=== PATIENT | male | born 1945 | race African-American/Black ===

== ENCOUNTER 2017-08-06 13:48 | Emergency (ER) | payer MEDICARE, MEDICAID ==
[2017-08-06] MEDS ORDERED: Lorazepam 2 MG/ML VIAL ONE (14:44)
[2017-08-06 16:22] LABS: #Eosinphils 0.3 thou/uL (0.0-0.7); #Lymphocytes 1.2 thou/uL (1.20-3.40); #Monocytes 0.8 thou/uL (0.11-0.59); #Neutrophils 8.5 thou/uL (1.40-6.50); %Basophils 0.2 % (0.0-1.0); %Eosinophils 2.9 % (0.0-10.0); %Lymphocytes 11.2 % (21.0-51.0); %Monocytes 7.2 % (0.0-10.0); %Neutrophils 78.5 % (42.0-75.0); Hemoglobin 13.4 g/dL (14.0-18.0); Mean Corpuscular HGB CONC 31.8 g/dL (32.0-36.0); Mean Corpuscular Hemoglobin 28.1 pg (27.0-31.0); Mean Corpuscular Volume 88.3 fl (80.0-94.0); Mean Platelet Volume 7.9 fL (7.4-10.4); Platelet Count 213 thou/uL (130-400); RBC Distribution Width 13.5 % (11.5-14.5); Red Blood Cell (RBC) Count 4.79 mill/uL (4.70-6.10); White Blood Cell (WBC) Count 10.8 thou/uL (4.8-10.8)
[2017-08-06 16:44] LABS: ALT (SGPT) 7 U/L (8-55); AST (SGOT) 9 U/L (5-34); Albumin 3.8 g/dL (3.4-4.8); Alkaline Phosphatase 68 U/L (40-150); Anion Gap 15 mmol/L (10-20); BUN (Urea Nitrogen) 24 mg/dL (8.4-25.7); Bilirubin, Total 0.4 mg/dL (0.2-1.2); Calc. Creatinine Clearance 0 mL/min (70-130); Calcium 9.7 mg/dL (7.8-10.44); Carbon Dioxide 21 mmol/L (23-31); Chloride 108 mmol/L (98-107); Estimated GFR-MDRD 34; Globulin 3.5 g/dL (2.4-3.5); Glucose 101 mg/dL (80-115); Potassium 4.3 mmol/L (3.5-5.1); Protein, Total 7.3 g/dL (5.8-8.1); Sodium 140 mmol/L (136-145)
== END 2017-08-06 17:52 | disposition home or self-care (01) ==
LOC: ERS 13:48
DX: R56.9 Unspecified convulsions (principal); K21.9 Gastro-esophageal reflux disease without esophagitis; F03.90 Unspecified dementia, unspecified severity, without behavioral disturbance, psychotic disturbance, mood disturbance, and anxiety; I10 Essential (primary) hypertension; F31.9 Bipolar disorder, unspecified; F41.9 Anxiety disorder, unspecified; F20.9 Schizophrenia, unspecified; Z79.899 Other long term (current) drug therapy; K58.9 Irritable bowel syndrome, unspecified; M81.0 Age-related osteoporosis without current pathological fracture
CPT/HCPCS: 36415; 80053; 85025; 96372; J2060

== ENCOUNTER 2018-12-01 14:19 | Inpatient (IN) | payer MEDICARE, MEDICAID ==
[2018-12-01 16:27] LABS: #Basophils 0.1 thou/uL (0.0-0.2); #Eosinphils 0.4 thou/uL (0.0-0.7); #Lymphocytes 0.8 thou/uL (1.20-3.40); #Monocytes 0.4 thou/uL (0.11-0.59); #Neutrophils 4.9 thou/uL (1.40-6.50); %Eosinophils 5.6 % (0.0-10.0); %Lymphocytes 12.7 % (21.0-51.0); %Monocytes 6.2 % (0.0-10.0); %Neutrophils 74.5 % (42.0-75.0); Hemoglobin 12.9 g/dL (14.0-18.0); Mean Corpuscular HGB CONC 31.1 g/dL (32.0-36.0); Mean Corpuscular Hemoglobin 27.9 pg (27.0-31.0); Mean Corpuscular Volume 89.9 fL (78.0-98.0); Platelet Count 257 thou/uL (130-400); RBC Distribution Width 14.8 % (11.5-14.5); Red Blood Cell (RBC) Count 4.63 mill/uL (4.70-6.10); White Blood Cell (WBC) Count 6.5 thou/uL (4.8-10.8)
[2018-12-01 16:47] LABS: ALT (SGPT) 9 U/L (8-55); AST (SGOT) 8 U/L (5-34); Alkaline Phosphatase 89 U/L (40-150); Anion Gap 12 mmol/L (10-20); BUN (Urea Nitrogen) 26 mg/dL (8.4-25.7); Bilirubin, Total 0.5 mg/dL (0.2-1.2); Calc. Creatinine Clearance 0 mL/min (70-130); Calcium 9.7 mg/dL (7.8-10.44); Carbon Dioxide 27 mmol/L (23-31); Chloride 105 mmol/L (98-107); Estimated GFR-MDRD 33; Globulin 4.1 g/dL (2.4-3.5); Glucose 89 mg/dL (80-115); Potassium 4.1 mmol/L (3.5-5.1); Protein, Total 8.1 g/dL (5.8-8.1); Sodium 140 mmol/L (136-145)
[2018-12-01 17:09] LABS: CKMB 2.7 ng/mL (0-6.6)
[2018-12-01] MEDS ORDERED: Aspirin Chewable 81 MG TAB ONE (17:13)
[2018-12-01] MEDS ORDERED: Ondansetron PF 4 MG/2 ML Vial IVP PRN (19:39)
[2018-12-01] MEDS ORDERED: Ondansetron ODT 4 MG TAB PO PRN (19:39)
[2018-12-01] MEDS ORDERED: Acetaminophen 325 MG TAB PO PRN (19:39)
[2018-12-01 20:08] LABS: Troponin I 0.035 ng/mL (< 0.028)
--- NOTE | 2018-12-01 20:58 | CT ---
CT BRAIN WITHOUT CONTRAST: 12/01/18 HISTORY: Syncope. FINDINGS: Comparison is made with exam of 12/17/17. Changes of cortical atrophy and chronic small vessel ischemic disease are again seen. The ventricular size is stable and the basilar cisterns patent. No evidence of acute infarct, hemorrhage, midline shift, or abnormal extra-axial fluid collections ar e seen. The bony calvarium is intact. There is mucous retention cyst in the right frontal sinus again seen. Small old lacunar infarct in the right external capsule is redemonstrated. IMPRESSION: No CT evidence of acute intracranial process. POS: [facility]
[2018-12-01] MEDS ORDERED: cloNIDine 0.1 MG TAB PO PRN (21:23)
[2018-12-01] MEDS: hydrALAZINE 20 MG/ML VIAL SLOW IVP PRN (21:46)
[2018-12-01] MEDS: Sodium Chloride 0.9% 1,000 ML IV SCH (21:47)
[2018-12-01 23:05] LABS: Troponin I 0.039 ng/mL (< 0.028)
--- NOTE | 2018-12-02 02:30 | HP ---
PRIMARY CARE PHYSICIAN: Lena Sheppard MD CHIEF COMPLAINT: Syncope. HISTORY OF PRESENT ILLNESS: Mr. 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 He presents to [facility] after syncopal episode during a transfer earlier today. Nurses were transferring him to his wheelchair when he had syncope, nurses helped him to the ground and later called for EMS. The patient's blood pressure was noticed to be hypotensive with systolic in the 80s. The patient was transferred to [facility] for further evaluation and management. Upon arriving, his blood pressure improved. He was started on IV fluid hydration with normal saline. The patient was saying that he had not had a heart, not had lungs, kidneys, or any other organs. He states that he was and he is not "here anymore." When asked about how he was feeling, he had not answered my questions. He would turn and look at me, but not answer any further questions. His initial workup included lab work, which showed acute on chronic kidney disease with a creatinine of 2.38 with estimated GFR of 33 and slightly indeterminate troponin of 0.049, which trended down to 0.035. The patient denies any chest pain. He stated that he did not have a heart, so he was not able to have chest pain. CT of the head was performed which showed no evidence of acute intracranial process. The patient's blood pressure then went hypertensive when he was transferred to the floor. Therefore, he was restarted on his home regimen which included clonidine, however talking to nursing staff, the patient had refused his home medications over the last few days. REVIEW OF SYSTEMS: All other systems reviewed and found to be negative unless mentioned in the HPI. PAST MEDICAL HISTORY: Hypertension, GERD, IBS, osteoporosis, dementia, bipolar disorder, schizophrenia, and anxiety. PAST SURGICAL HISTORY: Patient declined. PSYCHIATRIC HISTORY: Significant for depression, dementia, schizophrenia, anxiety, and bipolar disorder. SOCIAL HISTORY: The patient lives at a long-term care facility at [facility] and he denied any alcohol, tobacco, or illicit drug use. KNOWN ALLERGIES: Haldol, Novocain, and procaine. CURRENT HOME MEDICATIONS: 1. Amlodipine 5 mg oral daily. 2. Zoloft 50 mg oral daily. 3. Tylenol 500 mg oral every 6 hours as needed for pain. 4. Risperdal 50 mg IM twice a month, 1st and 15th of the month. 5. Famotidine 20 mg oral daily. PHYSICAL EXAMINATION: VITAL SIGNS: BP 141/94, pulse 80, respirations 18, temperature 97.5 degrees Fahrenheit, O2 saturations 98% on room air. GENERAL: The patient is awake and lying in bed, and he appears to be in no acute distress at this time and I was not able to perform any further exam due to patient's refusal. However, from my assessment, he is lying comfortably in bed and in no acute distress. He would look at me and answer to not having a heart, lungs, or any other organs. He stated that he was and he is not in the room. He had a normal respiratory rate without any further retractions and his chest wall expansion was normal. He had moved all his limbs without any further focal deficits noted. LABORATORY DATA: WBC 6.5, RBC 4.63, hemoglobin 12.9, and platelets 257. Sodium 140, potassium 4.1, anion gap 12, BUN 26, creatinine 2.38, estimated GFR 33, glucose 89, AST 8, ALT 9. Troponin 0.049, 0.035. DIAGNOSTIC IMAGING: CT brain without contrast showed no CT evidence of acute intracranial process. ASSESSMENT AND PLAN: 1. Syncopal episode. The patient will undergo further testing including carotid Doppler and an echocardiogram during hospital course. We will also check orthostatic vital signs. He will be restarted on his home regimen at this time. Blood pressure and other vital signs will be monitored, and he will be kept on telemetry. PT and OT will be ordered for further assessment. 2. Hypertension. Continue home regimen at this time and add p.r.n. IV hydralazine as needed. Blood pressure and other vital signs will be monitored. Orthostatic blood pressures will be checked. 3. History of bipolar disorder, schizophrenia, anxiety and depression. The patient will be resumed on his home regimen. 4. History of gastroesophageal reflux disease. Continue PPI. 5. Code status is full code. 6. Deep venous thrombosis and gastrointestinal prophylaxis. 7. Surrogate decision maker is his spouse, Juliet. DISPOSITION: Pending further workup and clinical findings. Job ID: [id number] [facility]
[2018-12-02] MEDS: hydrALAZINE 20 MG/ML VIAL SLOW IVP PRN (04:46)
[2018-12-02 06:32] LABS: #Basophils 0.1 thou/uL (0.0-0.2); #Eosinphils 0.6 thou/uL (0.0-0.7); #Lymphocytes 1.4 thou/uL (1.20-3.40); #Monocytes 0.4 thou/uL (0.11-0.59); %Basophils 1.1 % (0.0-1.0); %Eosinophils 10.2 % (0.0-10.0); %Lymphocytes 25.8 % (21.0-51.0); %Monocytes 7.7 % (0.0-10.0); %Neutrophils 55.2 % (42.0-75.0); Hemoglobin 11.9 g/dL (14.0-18.0); Mean Corpuscular HGB CONC 30.5 g/dL (32.0-36.0); Mean Corpuscular Hemoglobin 27.5 pg (27.0-31.0); Mean Corpuscular Volume 90.1 fL (78.0-98.0); Mean Platelet Volume 9.2 fL (7.4-10.4); Platelet Count 233 thou/uL (130-400); RBC Distribution Width 14.8 % (11.5-14.5); Red Blood Cell (RBC) Count 4.32 mill/uL (4.70-6.10); White Blood Cell (WBC) Count 5.4 thou/uL (4.8-10.8)
[2018-12-02 06:52] LABS: Anion Gap 11 mmol/L (10-20); BUN (Urea Nitrogen) 25 mg/dL (8.4-25.7); Calc. Creatinine Clearance 37 mL/min (70-130); Carbon Dioxide 23 mmol/L (23-31); Chloride 109 mmol/L (98-107); Estimated GFR-MDRD 41; Glucose 84 mg/dL (80-115); Potassium 3.9 mmol/L (3.5-5.1); Sodium 139 mmol/L (136-145)
[2018-12-02 08:52] LABS: Bilirubin Negative (Negative); Blood, Urine Negative (Negative); Clarity Clear (Clear); Glucose, Urine (Dipstick) Normal (Negative); Leukocyte 250 Leu/uL (Negative); Nitrite Negative (Negative); Protein, Urine (Dipstick) 10 mg/dL (Neg-Trace); RBC/HPF 0-3 HPF (0-3); Squamous Epithelial 0-3 HPF (0-3); Urobilinogen Normal mg/dL (Less than 2)
[2018-12-02 09:01] LABS: Bacteria/HPF 4+ HPF (None Seen)
[2018-12-02 09:02] LABS: Urine Culture Reflex Yes Yes
[2018-12-02] MEDS: Enoxaparin Sodium 40 MG/0.4 ML SYRINGE SC SCH (09:30)
[2018-12-02] MEDS: Amlodipine 5 MG TAB PO SCH (09:30)
[2018-12-02] MEDS: Sodium Chloride 0.9% 1,000 ML IV SCH ×2 (09:31→22:52)
--- NOTE | 2018-12-02 10:19 | ULT ---
BILATERAL CAROTID DUPLEX ULTRASOUND: HISTORY: Syncope TECHNIQUE: Grayscale, color-flow and spectral Doppler ultrasound imaging of the extracranial carotid artery syst ems was performed bilaterally. FINDINGS: There is mild plaque formation. The peak systolic velocity in the right ICA measures 60 cm/s with an end-diastolic velocity of 16 cm/ s and a systolic ratio of 0.59. The peak systolic velocity in the left ICA measures 60 cm/s with an end-diastolic velocity of 20 cm/s and a systolic ratio of 0.51. Flow in both vertebral arteries remains antegrade. IMPRESSION: No evidence of hemodynamically significant stenosis.
--- NOTE | 2018-12-02 14:58 | PRG ---
DATE OF SERVICE: 12/02/2018 SUBJECTIVE: The patient has some behavior behavioral issues. He is refusing medications. He just allows us to use IV. He responds to us on and off whenever he wants to. OBJECTIVE: VITAL SIGNS: Blood pressure is 177/95, pulse is 77, temperature is 96.8, respiratory rate is 20, and O2 saturation is 96% on room air. HEENT: His head is atraumatic and normocephalic. Pupils are responding to light properly. Sclerae are nonicteric. Oral mucosa is moist. NECK: Supple. LUNGS: Clear. HEART: S1, S2 normal. No S3. No S4. ABDOMEN: Soft, nontender, nondistended. EXTREMITIES: 1+ peripheral edema similarly bilateral on the both lower extremities. NEUROLOGICAL: Sometimes he follows my commands, sometimes he does not. LABORATORY DATA: White count of 5.4, hemoglobin 11.9, hematocrit 38.9, platelet count 233,000. Sodium 139, potassium 3.9, chloride 109, CO2 of 23, BUN 25, creatinine 1.95. Second set of troponin I 0.039. Urinalysis shows 250 of leukocyte esterase, 11 to 20 WBCs, 4+ bacteria. My culture on his urine is pending. IMAGING STUDIES: Carotid Doppler study showed no evidence of hemodynamically significant stenosis. IMPRESSION: 1. Syncope, most likely related to orthostatic hypotension. We did orthostatic vitals on him and he drops from his lying flat to standing up more than 40 mmHg systolic. We will give him IV fluids. 2. Hypertension. Now, we will avoid vasodilators like hydralazine. 3. History of bipolar disorder, schizophrenia, anxiety and depression, which translates into erratic behavior. Continue his gentle hydration with normal saline at 75 mL/h since with the patient's age is 72. We will recheck his orthostatic vitals tomorrow. We will continue his amlodipine and sertraline. Echocardiogram is still pending. Job ID: [id number]
[2018-12-03 07:28] LABS: #Eosinphils 0.5 thou/uL (0.0-0.7); #Lymphocytes 1.3 thou/uL (1.20-3.40); #Monocytes 0.3 thou/uL (0.11-0.59); #Neutrophils 2.2 thou/uL (1.40-6.50); %Basophils 0.7 % (0.0-1.0); %Eosinophils 12.6 % (0.0-10.0); %Lymphocytes 28.9 % (21.0-51.0); %Neutrophils 50.9 % (42.0-75.0); Hemoglobin 10.8 g/dL (14.0-18.0); Mean Corpuscular HGB CONC 30.4 g/dL (32.0-36.0); Mean Corpuscular Hemoglobin 27.4 pg (27.0-31.0); Mean Corpuscular Volume 90.3 fL (78.0-98.0); Mean Platelet Volume 9.2 fL (7.4-10.4); Platelet Count 222 thou/uL (130-400); RBC Distribution Width 14.6 % (11.5-14.5); Red Blood Cell (RBC) Count 3.94 mill/uL (4.70-6.10); White Blood Cell (WBC) Count 4.3 thou/uL (4.8-10.8)
[2018-12-03 07:51] LABS: Anion Gap 10 mmol/L (10-20); BUN (Urea Nitrogen) 24 mg/dL (8.4-25.7); Calc. Creatinine Clearance 37 mL/min (70-130); Calcium 8.9 mg/dL (7.8-10.44); Carbon Dioxide 24 mmol/L (23-31); Chloride 110 mmol/L (98-107); Estimated GFR-MDRD 42; Glucose 75 mg/dL (80-115); Potassium 3.9 mmol/L (3.5-5.1); Sodium 140 mmol/L (136-145)
[2018-12-03] MEDS: Amlodipine 5 MG TAB PO SCH ×2 (10:48→11:37)
[2018-12-03] MEDS: Enoxaparin Sodium 40 MG/0.4 ML SYRINGE SC SCH ×2 (10:49→11:41)
[2018-12-03] MEDS ORDERED: hydrALAZINE 20 MG/ML VIAL SLOW IVP PRN (11:00)
[2018-12-03] MEDS: Sodium Chloride 0.9% 1,000 ML IV SCH (13:20)
--- NOTE | 2018-12-03 13:25 | EKG ---
Test Reason : Blood Pressure : / mmHG Vent. Rate : 077 BPM Atrial Rate : 077 BPM P-R Int : 142 ms QRS Dur : 082 ms QT Int : 408 ms P-R-T Axes : 038 031 052 degrees QTc Int : 461 ms Normal sinus rhythm Possible Left atrial enlargement Borderline ECG No ST elevation/MO Confirmed by SRINIVAS TEIXEIRA M.D. ([id number]), editorial assistant OSEAS SYKES ([id number]) on 12/03/2018 1:24:41 PM Referred By: Confirmed By:SRINIVAS TEIXEIRA M.D.
--- NOTE | 2018-12-03 16:23 | PRG ---
DATE OF SERVICE: 12/03/2018 SUBJECTIVE: The patient is seen and examined at the bedside. He refused multiple times his medications. He wants to go back to his [facility], the place where he lives and where he came from. OBJECTIVE: VITAL SIGNS: Blood pressure is 180/95, temperature is 97.6, respirations 16, pulse oximetry is 97%, on room air. HEENT: His pupils are responding to light properly. Sclerae are nonicteric. Oral mucosa is moist. NECK: Supple. LUNGS: Clear. HEART: S1, S2, somewhat distant. No S3. No S4. ABDOMEN: Soft, nontender. EXTREMITIES: 1+ peripheral edema similar bilaterally. SKIN: No rashes. NEUROLOGICAL: He agrees to take his medications only under one condition that I am going to send him back to his prison today. LABORATORY DATA: White count of 4.3, hemoglobin 10.8, hematocrit 35.6, platelet count is 222,000. Sodium of 140, potassium 3.9, chloride 110, CO2 of 24, BUN 24, creatinine 1.94, glucose 75. IMPRESSION AND PLAN: 1. Syncope is most likely related to orthostatic hypotension. He is receiving IV fluids. We are going to check his orthostatic hypotension, blood pressure, and pulse today. We will see where we stand. 2. Hypertension, not controlled since the patient is refusing his medications. We are going to discontinue hydralazine and use labetalol. 3. History of bipolar disorder, schizophrenia, and depression. At this point, this is an issue because the patient refuses his medications to take. His carotid Doppler came back normal. No blockages. We are still awaiting for echocardiogram to be read. It was taking and once we have blood pressure under control, most likely we will have to send him back. Job ID: [id number]
[2018-12-04] MEDS: Sodium Chloride 0.9% 1,000 ML IV SCH ×2 (03:14→15:35)
[2018-12-04] MEDS: Enoxaparin Sodium 40 MG/0.4 ML SYRINGE SC SCH (09:45)
[2018-12-04] MEDS: Amlodipine 5 MG TAB PO SCH (09:45)
--- NOTE | 2018-12-04 14:19 | PRG ---
DATE OF SERVICE: 12/04/2018 SUBJECTIVE: The patient refuses any food or drinks. He says that he is not hungry. OBJECTIVE: VITAL SIGNS: Blood pressure is 174/97, pulse 71, temperature is 97.5, respirations 17, and O2 saturation 95% on room air. HEENT: His pupils are responding to light properly. Sclerae are nonicteric. Oral mucosa is somewhat dry. NECK: Supple. LUNGS: Clear. HEART: S1, S2 normal. There is a systolic murmur over the left sternal border, 2/6. ABDOMEN: Soft, nontender, nondistended. EXTREMITIES: No clubbing, cyanosis, or edema. NEUROLOGIC: He behaves like a psych patient. Sometimes he responds, sometimes he does not. Want to talk to anybody. He refuses medications. He refuses food. LABORATORY DATA: Microbiology, E. coli in his urine which is more than 100,000 colonies which is sensitive to ceftazidime, ceftriaxone, meropenem, Zosyn, and ampicillin. Cardiogram was done and showed LVEF estimated at 50% to 55% suggestive of diastolic dysfunction. A carotid Doppler was done the day before and it came back negative. IMPRESSION: 1. Syncope which was related to orthostasis. He is still getting gentle hydration 75 mL/h. 2. Hypertension. The patient refuses his medications. 3. Bipolar disorder/schizophrenia. The patient refused food, refused medications several times. I contacted a pharmacist and apparently he is due for his Risperdal slow release a dose on the , which is tomorrow. We will try to localize this in some other pharmacist since we do not carry this medications in our pharmacy. This might help us with his attitude towards not eating, not taking medications like he is supposed to. We will continue gentle hydration since he is not taking much orally any fluids or any food. Job ID: [id number]
[2018-12-04] MEDS: cefTRIAXone\\ROCEPHIN 1 GM in Sodium Chloride 0.9% 100 ML IVPB SCH (21:24)
[2018-12-05] MEDS: Labetalol HCl 100 MG/20 ML VIAL SLOW IVP PRN ×2 (00:07→04:01)
[2018-12-05] MEDS ORDERED: RISPERIDONE MICROSPHERES 50 MG IM SCH (09:00)
[2018-12-05] MEDS: Enoxaparin Sodium 40 MG/0.4 ML SYRINGE SC SCH (09:09)
[2018-12-05] MEDS: Amlodipine 5 MG TAB PO SCH (09:09)
[2018-12-05] MEDS: Sodium Chloride 0.9% 1,000 ML IV SCH (09:10)
--- NOTE | 2018-12-05 12:23 | PQF ---
EUFEMIA PEREIRA ZBIGNIEW A MD [id number] CLINICAL DOCUMENTATION IMPROVEMENT CLARIFICATION FORM: ICD-10 Updated PLEASE DO AN ADDENDUM TO THE PROGRESS NOTE WITH ANY DOCUMENTATION UPDATES OR ADDITIONS AND CARRY THROUGH TO DC SUMMARY. THANK YOU. DATE: 12/05/18 , 12/06/18, 12/07/18 ATTN:DR. Jazzy MORENO, DR.D MONTANEZ Please exercise your independent, professional judgment in responding to the clarification form. Clinical indicators are provided on the bottom of this form for your review. Please check appropriate box(s): [ ] Acute Renal Failure (ARF) / Acute Kidney Injury (SAMMY) [ ] Acute on Chronic Renal Failure please specify Stage of CKD (see below) [ x ] CKD without ARF/SAMMY please specify Stage of CKD__III [ ] Other diagnosis [ ] Unable to determine In addition, please specify: Present on Admission (POA): [x ] Yes [ ] No [ ] Unable to determine National Kidney Foundation Guidelines for CKD Staging Stage I Kidney damage with normal or increased GFRGFR > 90 Stage IIKidney damage with mildly decreased GFRGFR 60-89 Stage III Kidney damage with moderately decreased GFRGFR 30-59 Stage IVKidney damage with severely decreased GFRGFR 16-29 Stage VKidney failureGFR<15 ESRDEnd Stage Renal DiseaseOn dialysis Acute Renal Failure/Acute Kidney Failure defined as: Increases in SCr by (>) 0.3 mg/dl within 48 hours OR- Increases in SCr by (>) 1.5 times baseline, known or presumed to have occurred within the prior 7 days OR- Urine volume < 0.5 ml/kg/hour for 6 hours (KDIGO supplement 2012 for RIFLE/EROS criteria) For continuity of documentation, please document condition throughout progress notes and discharge summary. Thank You. CLINICAL INDICATORS - SIGNS / SYMPTOMS / LABS 12/01 ED: PHYSICIAN DX: ACUTE KIDNEY INJURY 12/01 H & P (LEE) HIS INITIAL WORKUP INCLUDED LAB WORK, WHICH SHOWED ACUTE ON CHRONIC KIDNEY DISEASE WITH A CREATININE OF 2.38 WITH ESTIMATED GFR OF 33. 12/01 CREATININE 2.38 1.95 1.94 RISK: PT IS REFUSING TO DRINK FLUIDS (12/04-JOSH) ADVANCED AGE ( 72) UTI W/ E-COLI (JOSH) TREATMENTS: IV FLUID RESUSCITATION SERIAL LABS THANK YOU! JALEESA (This form is maintained as a part of the permanent medical record) 2014 [employer]. All Rights Reserved [email or web address] [phone] MTDD
--- NOTE | 2018-12-05 12:38 | PQF ---
EUFEMIA PEREIRA ZBIGNIEW A MD [id number] [facility]-[id number] CLINICAL DOCUMENTATION IMPROVEMENT CLARIFICATION FORM: ICD-10 Updated PLEASE DO AN ADDENDUM TO THE PROGRESS NOTE WITH ANY DOCUMENTATION UPDATES OR ADDITIONS AND CARRY THROUGH TO DC SUMMARY. THANK YOU. DATE: 12/05/18 , 12/06 ATTN:DR. Gunnar MORENO Please exercise your independent, professional judgment in responding to the clarification form. Clinical indicators are provided on the bottom of this form for your review. Please check appropriate box(s): [ x ] UTI please specify if due to or related to (as applicable): UTI Site: [ ] Kidney [ ] Ureter [ x ] Bladder [ ] Urethra [ ] Unable to determine Specify Organism (if known): [ ] Unknown organism [ ] Other diagnosis [ ] Unable to determine In addition, please specify: Present on Admission (POA): [ ] Yes [ ] No [ x ] Unable to determine For continuity of documentation, please document condition throughout progress notes and discharge summary. Thank You. CLINICAL INDICATORS - SIGNS / SYMPTOMS / LABS 12/02 MICROBIOLOGY URINE CULTURE- ESCHERICHIA COLI 12/02 URINE- WBC 11-20, LEUKOCYTES 250, BACTERIA 4+ RISK: PT REFUSING MEDICATIONS (12/03 JOSH) ADVANCED AGE (72) HX OF BIPOLAR,SCHIZOPHRENIA W/ BEHAVIOR ISSUES( JOSH) TREATMENTS: URINE CULTURE URINALYSIS ROCEPHIN ORDERED (LEE) THANK YOU! JALEESA (This form is maintained as a part of the permanent medical record) 2014 [employer], [employer]. All Rights Reserved [email or web address] [phone] [email or web address]
--- NOTE | 2018-12-05 14:28 | PRG ---
DATE OF SERVICE: 12/05/2018 SUBJECTIVE: The patient is seen and examined at the bedside. He has very flat affect. He does not want to eat. He does not communicate with me. Most likely his schizophrenia is causing that. OBJECTIVE: VITAL SIGNS: Blood pressure is 131/69, pulse is 74, temperature is 97.6, respirations are 18, O2 saturation is 96% on room air. HEENT: His head is atraumatic and normocephalic. Eyes are PERRLA. Sclerae are nonicteric. Oral mucosa is moist. NECK: Supple. LUNGS: Clear. HEART: S1 and S2 normal. ABDOMEN: Soft, nontender. EXTREMITIES: No clubbing, cyanosis, or edema. NEUROLOGICAL: He is not consistent with his action. Sometimes he follows my commands. Sometimes he does not want to follow. He moves his all 4 extremities. LABORATORY DATA: None today. IMPRESSION AND PLAN: 1. Syncope, which was related to orthostasis. I think this has improved. 2. Hypertension. The patient refuses his medications. 3. Bipolar disorder/schizophrenia. Yesterday, I talked to the pharmacist, and we are going to try to get his Risperdal, which I hope is going to help to change his attitude. He does not want to eat. I think he is just upset with us. He is due for his next dose of slow release Risperdal, and we will try to get this and give it to him. For now, we will just continue his gentle hydration with IV fluids at 50 mL/h, and we will try to encourage him to eat. Job ID: [id number]
[2018-12-05] MEDS: cefTRIAXone\\ROCEPHIN 1 GM in Sodium Chloride 0.9% 100 ML IVPB SCH (20:19)
[2018-12-06] MEDS: Sodium Chloride 0.9% 1,000 ML IV SCH ×4 (04:54→21:39)
[2018-12-06] MEDS: Amlodipine 5 MG TAB PO SCH (08:30)
[2018-12-06] MEDS: Enoxaparin Sodium 40 MG/0.4 ML SYRINGE SC SCH (08:31)
[2018-12-06] MEDS: Labetalol HCl 100 MG/20 ML VIAL SLOW IVP PRN (08:31)
--- NOTE | 2018-12-06 14:25 | PRG ---
DATE OF SERVICE: SUBJECTIVE: The patient is seen and evaluated at the bedside. He does not interact with me much. He says one word from time to time. His affect is flat. He refuses to eat anything because he feels that he is not hungry, although he drinks Ensure. OBJECTIVE: VITAL SIGNS: Blood pressure is 148/80, pulse is 71, temperature is 97.7, respirations 18, O2 saturation is 98% on room air. HEENT: Eyes: Pupils are responding to light properly. Sclerae are nonicteric. Oral mucosa is moist. NECK: Supple. LUNGS: Clear. HEART: S1, S2 normal. No S3. No S4. ABDOMEN: Soft, nontender. EXTREMITIES: 1+ peripheral edema similar bilaterally on the lower extremities. LABORATORY DATA: Pending. IMPRESSION: 1. Orthostatic hypotension. 2. Syncope secondary to orthostatic hypotension. Urinary tract infection with Escherichia coli, on Rocephin. 1. Hypertension. 2. Bipolar disorder. 3. Schizophrenia. PLAN: We are going to continue his gentle hydration since he is not taking much orally. He received his long-acting Risperdal yesterday. It was brought to him from his detention in [place]. We will continue his Rocephin for urinary tract infection and he will be started on Megace. Hopefully, he is going to take this to improve his anorexia. He does not want to eat any solid foods. Job ID: [id number]
[2018-12-06] MEDS: Megestrol Acetate 800 MG/20 ML UDCUP PO SCH (16:16)
[2018-12-06] MEDS: cefTRIAXone\\ROCEPHIN 1 GM in Sodium Chloride 0.9% 100 ML IVPB SCH (20:24)
[2018-12-07] MEDS: Amlodipine 5 MG TAB PO SCH ×2 (09:32→11:36)
[2018-12-07] MEDS: Enoxaparin Sodium 40 MG/0.4 ML SYRINGE SC SCH (09:33)
[2018-12-07] MEDS: Sodium Chloride 0.9% 1,000 ML IV SCH (11:39)
[2018-12-07 12:14] VITALS: BMI 24.5
[2018-12-07 15:26] VITALS: TEMP 97.5
[2018-12-07] MEDS: Megestrol Acetate 800 MG/20 ML UDCUP PO SCH ×2 (15:27→15:28)
[2018-12-07 17:58] VITALS: BP 144/89
--- NOTE | 2018-12-09 08:45 | DIS ---
DATE OF ADMISSION: 12/01/2018 DATE OF DISCHARGE: 12/07/2018 DISCHARGE DIAGNOSES: 1. Syncope. 2. Dehydration with orthostatic hypotension. 3. Chronic kidney disease, stage 3. 4. Schizophrenia. 5. Elevated troponin, felt to be normal for patient's level of renal function and age and consistent with prior values. 6. Urinary colonization of Escherichia coli. HISTORY OF PRESENT ILLNESS: This patient is a 73-year-old male, who has significant schizophrenia and lives in a residential facility. The patient was being transferred from a wheelchair apparently when he had episode of syncope. He was taken to the emergency department, where he was noted to have systolic blood pressure in the 80s, felt to be orthostatic in nature and had some IV fluids initiated. His blood pressure responded to the fluids. His other workup was notable for indeterminate troponins, which were consistent with some of his previous values within the record system, had a CT of the head, which was unremarkable. The patient was uncooperative with the exam given his underlying schizophrenia and was not able to give any hopeful history. HOSPITAL COURSE: The patient was admitted to the hospital. He was maintained on telemetry. Had carotid Dopplers which were negative. Had an echocardiogram, which revealed an ejection fraction of 50% to 55% with some suggestion of a diastolic dysfunction, but was otherwise normal. The patient's urine did grow an E coli. However, he remained afebrile, had no leukocytosis and no further evidence of infection, and was felt to be more likely related to colonization. His blood pressure remains normal. His creatinine and GFR improved slightly, but remained in the stage III range consistent with his prior values as well. At that point, the patient was felt to be stable. However, he was refusing to eat or take medications due to his schizophrenia. The patient's facility was ultimately called and they essentially told us that the patient's behavior was consistent with his usual behavior for them and they had some particular tricks which they could use in order to get him to eat better and/or preferred. Therefore, it was felt that the best approach to this patient would be to get him back to the facility, where they knew him best and to help facilitate better p.o. intake as well as medications. PHYSICAL EXAMINATION: VITAL SIGNS: On the day of discharge, his temperature was 97.5, pulse 85, respirations 18, O2 saturation 95% on room air, blood pressure 144/89. GENERAL: He was awake and alert, but unwilling to converse and to allow exam. HEART: Regular. LUNGS: Clear bilaterally. ABDOMEN: Benign. DISPOSITION: The patient is discharged back to his residential facility. ACTIVITY: His activity is as tolerated. DIET: He will be on a heart-healthy diet. DISCHARGE MEDICATIONS: He will continue his usual home medications including; 1. Risperdal. 2. Tylenol. 3. Catapres. 4. Sertraline. 5. Pepcid. 6. Norvasc. FOLLOWUP: He will have follow up at the [facility] with Dr. Lord and he can return to the hospital should he have any problems prior to that time. Job ID: [id number]
--- NOTE | 2018-12-09 11:16 | PQF ---
EUFEMIA PEREIRA, MATEO Morin MD [id number] CLINICAL DOCUMENTATION IMPROVEMENT CLARIFICATION FORM: ICD-10 Updated PLEASE DO AN ADDENDUM TO THE PROGRESS NOTE WITH ANY DOCUMENTATION UPDATES OR ADDITIONS AND CARRY THROUGH TO DC SUMMARY. THANK YOU. DATE: 12/09/2018 ATTN:DR. Ariela MONTANEZ Please exercise your independent, professional judgment in responding to the clarification form. Clinical indicators are provided on the bottom of this form for your review. 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 SUGGESTIVE OF DIASTOLIC DYSFUNCTION, NORMAL LEFT ATRIAL SIZE, NORMAL RIGHT ATRIAL SIZE 12/03 PN (JOSH) IMPRESSION: SYNCOPE IS MOST LIKELY RELATED TO ORTHOSTATIC HYPOTENSION. 12/03-12/05 PN ( JOSH) PT IS REFUSING TO TAKE HIS MEDICATIONS FOR HYPERTENSION RISK: ADVANCED AGE ( 73) HX HTN (LEE) REFUSAL OF MEDICATION DURING THIS HOSPITALIZATION (JOSH) TREATMENTS: CARDIAC ENZYMES CAROTID DOPPLER 12/02 ECHO 12/03 THANK YOU ! JALEESA (This form is maintained as a part of the permanent medical record) 2014 [employer]. All Rights Reserved [email or web address] [phone] MTDD
== END 2018-12-07 18:40 | DRG 312 ==
LOC: ERS 14:19 → OBSVTOIN 21:00 → 2NO 21:00
PROVIDERS: ADMIT Internal Medicine; ATTEND Internal Medicine
DX: I95.1 Orthostatic hypotension (principal); F20.9 Schizophrenia, unspecified; K21.9 Gastro-esophageal reflux disease without esophagitis; E86.0 Dehydration; F03.90 Unspecified dementia, unspecified severity, without behavioral disturbance, psychotic disturbance, mood disturbance, and anxiety; F41.9 Anxiety disorder, unspecified; B96.20 Unspecified Escherichia coli [E. coli] as the cause of diseases classified elsewhere; I12.9 Hypertensive chronic kidney disease with stage 1 through stage 4 chronic kidney disease, or unspecified chronic kidney disease; N18.3 Chronic kidney disease, stage 3 (moderate); F31.9 Bipolar disorder, unspecified; Z88.8 Allergy status to other drugs, medicaments and biological substances
CPT/HCPCS: 36415; 70450; 80048; 80053; 81001; 82553; 84484; 85025; 87077; 87086; 87186; 93005; 93306; 93880; 96360; J0360; J0696; J1650; J3490

== ENCOUNTER 2019-05-08 15:14 | Inpatient (IN) | payer MEDICAID, MEDICARE ==
[2019-05-08] MEDS ORDERED: Piperacillin/Tazobactam 4.5 GM VIAL ONE (15:30)
[2019-05-08 15:32] LABS: Hemoglobin 7.1 g/dL (14.0-18.0); Mean Corpuscular HGB CONC 30.5 g/dL (32.0-36.0); Mean Corpuscular Hemoglobin 27.2 pg (27.0-31.0); Mean Corpuscular Volume 89.1 fL (78.0-98.0); Mean Platelet Volume 10.7 fL (7.4-10.4); Platelet Count 159 thou/uL (130-400); RBC Distribution Width 16.3 % (11.5-14.5); Red Blood Cell (RBC) Count 2.62 mill/uL (4.70-6.10)
[2019-05-08 15:43] LABS: ALT (SGPT) 9 U/L (8-55); AST (SGOT) 15 U/L (5-34); Albumin 2.9 g/dL (3.4-4.8); Alkaline Phosphatase 73 U/L (40-110); Anion Gap 19 mmol/L (10-20); BUN (Urea Nitrogen) 38 mg/dL (8.4-25.7); Bilirubin, Total 0.3 mg/dL (0.2-1.2); CK (CPK) 19 U/L (30-200); Calc. Creatinine Clearance 0 mL/min (70-130); Carbon Dioxide 20 mmol/L (23-31); Chloride 118 mmol/L (98-107); Estimated GFR-MDRD 20; Globulin 4.1 g/dL (2.4-3.5); Glucose 143 mg/dL (83-110); Lipase 5 U/L (8-78); Magnesium 2.6 mg/dL (1.6-2.6); Potassium 4.7 mmol/L (3.5-5.1); Sodium 152 mmol/L (136-145)
[2019-05-08 15:49] LABS: Anisocytosis SLIGHT = 6-15 cells (100X) (0-5/hpf); Band 14 % (5-11); Lymphocytes 5 % (21-51); MDiff Complete? YES; Neutrophil 81 % (42-75); Nucleated RBC 8 % (0); Platelet Morphology Comment Appears Adequate; Polychromasia SLIGHT = 2-3 cells (100X) (0-2/hpf); Target Cells SLIGHT = 2-5 cells (100X) (0-1/hpf)
--- NOTE | 2019-05-08 16:01 | CT ---
PET CT WITHOUT CONTRAST: COMPARISON: 12/01/2018. HISTORY: Hypertension. Schizophrenia. FINDINGS: No parenchymal hemorrhage. No extraaxial hematoma. No midline shift. Basilar cisterns are patent. Age-appropriate atrophy. Cortical medrano-white matter differentiation is preserved. No hydrocephalus. White matter hypodensities due to chronic small-vessel ischemic changes are noted. Adequate aeration of the sinuses and mastoid air cells. Intact calvarium. Stable mucous retention c yst in the right frontal sinus. Mixed-attenuation focus in the region of the pineal gland measuring 0.9 x 0.8 cm. The possibility of a pineal lesion could not be entirely excluded. Dedicated nonemerg ent pre- and postcontrast brain MRI is recommended. IMPRESSION: 1. No acute intracranial process. 2. Possible complex pineal lesion. Dedicated pre- and postcontrast brain MRI can be performed on a nonemergent basis. POS: CET
--- NOTE | 2019-05-08 16:01 | RAD ---
ONE VIEW CHEST: Comparison: 12-17-17 History: Unresponsive patient. FINDINGS: Slight elongation of the aorta. Normal cardiac silhouette. The lung volumes are diminished. There uribe s appear to be a left lower lobe infiltrate. No pneumothorax. IMPRESSION: Left lower lobe infiltrate. POS: CET
[2019-05-08 16:04] LABS: CKMB 3.2 ng/mL (0-6.6)
[2019-05-08 16:17] LABS: Acetaminophen Less than 6.0 mcg/mL (10.0-30.0); Alcohol Less than 10 mg/dL (Less than 10); Salicylate Less than 8.0 mg/dL (15.0-30.0)
[2019-05-08 18:33] LABS: Troponin I 0.019 ng/mL (< 0.028)
[2019-05-08 19:02] LABS: Amphetamine Not Detected (NotDetected); Bacteria/HPF 3+ HPF (None Seen); Barbiturates Screen Not Detected (NotDetected); Benzodiazepine Screen Not Detected (NotDetected); Bilirubin Negative (Negative); Blood, Urine Negative (Negative); Clarity Turbid (Clear); Cocaine Metabolite Screen Not Detected (NotDetected); Glucose, Urine (Dipstick) Normal (Negative); Leukocyte 500 Leu/uL (Negative); Medtox Control Line Valid? VALID (VALID); Medtox Reader # READER 1; Methadone Not Detected (NotDetected); Methamphetamine Not Detected (NotDetected); Nitrite 2+ (Negative); Opiate Screen Not Detected (NotDetected); Oxycodone Screen Not Detected (NotDetected); Phencyclidine (PCP) Not Detected (NotDetected); Protein, Urine (Dipstick) 30 mg/dL (Neg-Trace); RBC/HPF 0-3 HPF (0-3); Squamous Epithelial 0-3 HPF (0-3); THC/Cannabinoid Screen Not Detected (NotDetected); Tricyclic Screen Not Detected (NotDetected); Urobilinogen Normal mg/dL (Less than 2); WBC/HPF Greater than 50 HPF (0-3)
[2019-05-08 19:04] LABS: Lactic Acid 0.6 mmol/L (0.5-2.2)
[2019-05-08] MEDS ORDERED: Acetaminophen 500 MG TAB PO PRN (20:01)
[2019-05-08] MEDS ORDERED: Acetaminophen 650 MG Suppository PR PRN (20:01)
[2019-05-08] MEDS ORDERED: Sodium Chloride 0.9% 1,000 ML IV SCH (20:01)
[2019-05-08] MEDS ORDERED: Ondansetron ODT 4 MG TAB PO PRN (20:01)
[2019-05-08] MEDS ORDERED: Ondansetron PF 4 MG/2 ML Vial IVP PRN (20:01)
[2019-05-08] MEDS ORDERED: Cefepime 2 GM VIAL ONE (20:55)
[2019-05-08] MEDS ORDERED: Famotidine/PF 20 mg/2ml Vial ONE (20:57)
[2019-05-08] MEDS ORDERED: Vancomycin 1.5 GRAM/300 ML BAG 1.5 GM in Premix Bag 1 BAG IVPB SCH (21:00)
[2019-05-08] MEDS ORDERED: Famotidine/PF 20 mg/2ml Vial SLOW IVP SCH (21:00)
[2019-05-08] MEDS: Cefepime 2 GM in Sodium Chloride 0.9% 100 ML IVPB SCH (21:09)
[2019-05-08] MEDS: Sodium Chloride 0.9% 1,000 ML IV SCH (21:09)
[2019-05-08 23:38] LABS: Hemoglobin 6.9 g/dL (14.0-18.0); Platelet Count 131 thou/uL (130-400)
--- NOTE | 2019-05-09 03:01 | HP ---
PRIMARY CARE PROVIDER: Dr. Lena Sheppard. CHIEF COMPLAINT: Unresponsiveness. HISTORY OF PRESENT ILLNESS: This is a 73-year-old male, who is a current resident at [facility], who was brought to [facility] Emergency Department by EMS personnel after they were called due to patient being unresponsive. History is obtained after review of electronic medical record and in conjunction with discussions with the emergency room attending. The patient currently with altered mentation and unable to provide any coherent history. The patient with a significant history of schizophrenia and previous episodes of "playing " per EMS reports. The patient was recently admitted to [facility] on 12/01 through 12/07/2018, for syncope, dehydration, orthostatic hypotension, and urinary tract infection. During that hospital stay, patient had been refusing to eat or take his medications due to his mental health issues. The patient was subsequently transferred back to his care home facility and has not been admitted to [facility] to date until this current admission. The patient apparently was not responsive and had poor oral intake per ER reports. In the emergency room, the patient was noted with severe dehydration and hypotension and treated initially for suspected sepsis. Chest imaging showed left lower lobe infiltrate and the patient received IV Zosyn and vancomycin per sepsis protocol. The patient also received IV fluid resuscitation and placed on a Gilberto Hugger due to hypothermia. The patient was initially hypotensive with blood pressure 67/47, improving to systolics over 100 with IV fluids. PAST MEDICAL HISTORY: 1. Paranoid schizophrenia. 2. Chronic kidney disease stage 3. 3. Chronic elevated troponin I secondary to chronic kidney disease. 4. Hypertension. 5. Gastroesophageal reflux disease. 6. Irritable bowel syndrome. 7. Osteoporosis. 8. Dementia. 9. Bipolar disorder. 10. Anxiety disorder. PAST SURGICAL HISTORY: Reviewed and negative. CURRENT MEDICATIONS: 1. Amlodipine 5 mg p.o. daily. 2. Zoloft 50 mg p.o. daily. 3. Risperdal 50 mg intramuscularly twice monthly on the and . 4. Famotidine 20 mg p.o. daily. ALLERGIES: HALDOL, NOVOCAIN, AND PROCAINE. FAMILY HISTORY: No inheritable diseases per review of the medical record. SOCIAL HISTORY: Resident of [facility], unable to perform activities of daily living. No alcohol, tobacco, or illicit drug use. REVIEW OF SYSTEMS: Unobtainable due to patient's altered mental status and inability to communicate. PHYSICAL EXAMINATION: VITAL SIGNS: On admission, blood pressure 97/60, pulse 98, respiratory rate 19, and temperature 90.8 degrees Fahrenheit rectally, O2 saturation 96% on room air. GENERAL APPEARANCE: This is a 73-year-old male, lying on the hospital bed with blankets pulled over his head on a Gilberto Hugger warming mechanism. HEENT: Pupils are equal, round, reactive to light and accommodation. Extraocular muscles are intact. No scleral icterus. No conjunctival injection. Nares patent. OP is clear. Dry oral mucosa noted. NECK: Supple. No cervical adenopathy. No thyromegaly. No carotid bruits. No JVD noted. No cervical motion tenderness or nuchal rigidity. CHEST: Lungs are clear to auscultation bilaterally. CARDIOVASCULAR: S1 and S2 with tachycardia. ABDOMEN: Rounded, soft, nontender, and nondistended. Bowel sounds are positive in all 4 quadrants. There is no hepatosplenomegaly. No abdominal bruits. No rebound or guarding appreciated. EXTREMITIES: Warm and dry with poor skin turgor. No clubbing, cyanosis, or asymmetric edema appreciated. Pulses diminished bilaterally at the dorsalis pedis and posterior tibial arteries. Capillary refill prolonged greater than 2 seconds. NEUROLOGIC: Patient unresponsive to voice or painful stimuli. Breathing spontaneously. Noncommunicative. PERTINENT LABORATORY AND X-RAY FINDINGS: Sodium 152, potassium 4.7, chloride 118, CO2 of 20, BUN 38, creatinine 3.70, estimated GFR 20, glucose 143. Lactic acid level ranged between 0.6 to 2.1. LFTs within normal limits. Troponin I ranged between 0.019 to 0.033. TSH 3.74. Lipase 5. CBC showed a white blood cell count of 9.0, hemoglobin 7.1, hematocrit 23.4, platelet count 159 with 81% neutrophils, 14% bands. Salicylate, acetaminophen, and plasma alcohol level negative. CT of the brain without contrast dated 05/08/2019, showed no acute intracranial process. Questionable complex pineal lesion. Portable chest x-ray dated 05/08/2019, showed left lower lobe infiltrate. EKG dated 05/08/2019, by my interpretation shows sinus mechanism with heart rates in the 80s. Normal R-wave progression noted in the precordial leads. Normal axis. No acute ST-T wave changes appreciated. ASSESSMENT AND PLAN: 1. Sepsis with septic shock. The patient will be admitted to the telemetry unit. Appropriate response to initial IV fluid resuscitation in the emergency room. We will continue normal saline at 125 mL/h. Avoid antihypertensive medications. Continue cefepime 2 g IV q.12 hours with additional vancomycin 1 g IV q.12 hours. Blood and urine cultures pending. Serial lactic acid level negative x2. 2. Acute kidney injury on chronic kidney disease stage 3. Suspect secondary to severe dehydration in conjunction with sepsis syndrome. Avoid nephrotoxic agents and limit contrast exposure. Continue IV fluids as outlined previously and repeat creatinine in the a.m. 3. Hypernatremia. Suspect secondary to severe dehydration and poor oral intake. We will continue IV fluid resuscitation as stated previously and monitor serial sodium values. 4. Acute on chronic normocytic anemia. No obvious evidence of acute blood loss. Check stool guaiac x1. Repeat hemoglobin at 2300 hours and in the a.m. 5. Schizophrenia. We will continue general supportive management. Confirm outpatient medication regimen. 6. Healthcare-associated bacterial pneumonia of the left lower lobe. Suspect gram-positive cocci. We will continue cefepime 2 g IV q.12 hours with additional vancomycin 1 g IV q.12 hours. Oxygen as needed to maintain O2 saturations greater than or equal to 90%. 7. Prophylaxis. SCDs while in bed. Pepcid 20 mg IV q.12 hours. PT evaluation in the a.m.. CODE STATUS: Do not attempt resuscitation confirmed with records reviewed from out of hospital DNR request from [facility]. Job ID: [id number]
[2019-05-09] MEDS: Sodium Chloride 0.9% 1,000 ML IV SCH ×4 (04:01→19:26)
[2019-05-09 04:40] LABS: Band 17 % (5-11); Eosinophils 1 % (0-10); Hemoglobin 6.4 g/dL (14.0-18.0); Lymphocytes 9 % (21-51); MDiff Complete? YES; Mean Corpuscular HGB CONC 31.5 g/dL (32.0-36.0); Mean Corpuscular Hemoglobin 27.9 pg (27.0-31.0); Mean Corpuscular Volume 88.6 fL (78.0-98.0); Mean Platelet Volume 9.8 fL (7.4-10.4); Monocytes 5 % (0-10); Neutrophil 68 % (42-75); Nucleated RBC 2 % (0); Platelet Count 140 thou/uL (130-400); Platelet Morphology Comment Appears Adequate; RBC Distribution Width 16.2 % (11.5-14.5); Red Blood Cell (RBC) Count 2.28 mill/uL (4.70-6.10); White Blood Cell (WBC) Count 9.5 thou/uL (4.8-10.8)
[2019-05-09 04:54] LABS: ALT (SGPT) 7 U/L (8-55); AST (SGOT) 8 U/L (5-34); Albumin 2.7 g/dL (3.4-4.8); Alkaline Phosphatase 64 U/L (40-110); Anion Gap 13 mmol/L (10-20); BUN (Urea Nitrogen) 38 mg/dL (8.4-25.7); Bilirubin, Total 0.3 mg/dL (0.2-1.2); Calc. Creatinine Clearance 17 mL/min (70-130); Calcium 8.5 mg/dL (7.8-10.44); Carbon Dioxide 24 mmol/L (23-31); Chloride 118 mmol/L (98-107); Estimated GFR-MDRD 18; Globulin 3.7 g/dL (2.4-3.5); Glucose 64 mg/dL (83-110); Potassium 4.7 mmol/L (3.5-5.1); Protein, Total 6.4 g/dL (5.8-8.1); Sodium 150 mmol/L (136-145)
[2019-05-09] MEDS: Cefepime 2 GM in Sodium Chloride 0.9% 100 ML IVPB SCH (08:50)
--- NOTE | 2019-05-09 17:35 | PDOC.HOSPP ---
- Subjective Encounter Date: 05/09/19 Encounter Time: 17:35 Subjective: f/u for sepsis with shock suspected secondary to PNA on Cefepime/Vancomycin. - Objective Vital Signs & Weight: Vital Signs (12 hours) Temp Pulse Pulse Resp BP BP Pulse Ox 05/09/19 16:52 97.3 F L 88 16 140/76 95 05/09/19 16:48 97.3 F L 88 18 140/76 95 05/09/19 14:11 94 L 05/09/19 12:00 97.2 F L 92 18 122/64 91 L 05/09/19 08:10 100 05/09/19 08:08 97.2 F L 94 18 121/75 100 05/09/19 07:44 98 Weight Admit Weight 153 lb Weight 153 lb I&O: 05/08/19 05/09/19 05/10/19 06:59 06:59 06:59 Intake Total 411 0 Balance 411 0 Result Diagrams: 05/09/19 04:12 05/09/19 04:12 Additional Labs: Laboratory Tests 05/08/19 05/08/19 05/08/19 15:16 15:16 23:29 Hgb 7.1 L 6.9 L Neutrophils % (Manual) 81 H Band Neuts % (Manual) 14 H Sodium 152 H Creatinine 3.70 H Ferritin Cortisol 05/09/19 05/09/19 05/09/19 04:12 04:12 13:08 Hgb Neutrophils % (Manual) 68 Band Neuts % (Manual) 17 H Sodium Creatinine Ferritin 95.90 Cortisol 9.10 EKG Reviewed by me: Yes (Tele - SR) Hospitalist ROS - Medication Medications: Active Medications Generic Name Dose Route Start Last Admin Trade Name Freq PRN Reason Stop Dose Admin Sodium Chloride 1,000 mls @ 125 mls/hr 05/08/19 20:01 05/09/19 12:18 Normal Saline 0.9% IV 1,000 mls .Q8H TAWNYA Administration Sodium Chloride 10 ml 05/09/19 09:00 05/09/19 08:50 Flush - Normal Saline IVF 10 ml Q12HR TAWNYA Administration - Exam General Appearance: NAD, awake alert Eye: PERRL, anicteric sclera ENT: normocephalic atraumatic, no oropharyngeal lesions Neck: supple, symmetric, no JVD, no thyromegaly Heart: RRR, no gallops, no rubs, normal peripheral pulses Respiratory: no rales, no ronchi Respiratory - other findings: diminished in bases Gastrointestinal: soft, non-tender, non-distended, normal bowel sounds, no palpable masses Extremities: no cyanosis, no clubbing Skin: normal turgor, no lesions Neurological: cranial nerve grossly intact, no new deficit Psychiatric: oriented to person, flat affect Hosp A/P (1) Sepsis with encephalopathy and septic shock Code(s): A41.9 - SEPSIS, UNSPECIFIED ORGANISM; R65.21 - SEVERE SEPSIS WITH SEPTIC SHOCK; G93.40 - ENCEPHALOPATHY, UNSPECIFIED Status: Acute Plan: Continue Cefepime/Vancomycin, decrease IVF's, await final blood/Ucx results, BP improved (2) Healthcare associated bacterial pneumonia Code(s): J15.9 - UNSPECIFIED BACTERIAL PNEUMONIA Status: Acute Plan: Suspected with gm+ cocci, continue Cefepime/Vancomycin (3) SAMMY (acute kidney injury) Code(s): N17.9 - ACUTE KIDNEY FAILURE, UNSPECIFIED Status: Acute Plan: Worsening, continue to avoid nephrotoxic meds and limit contrast, consult Nephrology in am (4) Hypernatremia Code(s): E87.0 - HYPEROSMOLALITY AND HYPERNATREMIA Status: Acute Plan: Improved, continue low-volume IVF's, serial Na+ (5) CKD (chronic kidney disease) stage 4, GFR 15-29 ml/min Code(s): N18.4 - CHRONIC KIDNEY DISEASE, STAGE 4 (SEVERE) Status: Chronic (6) Schizophrenia Code(s): F20.9 - SCHIZOPHRENIA, UNSPECIFIED Status: Chronic Plan: Resume home medication regimen (7) Normocytic anemia Code(s): D64.9 - ANEMIA, UNSPECIFIED Status: Acute Plan: Stool guaiac pending, transfuse 2u PRBC's today, serial H/H, check Iron studies , Retic count - Plan continue antibiotics, PT/OT, addiction social worker, respiratory therapy, out of bed/ ambulate, DVT proph w/SCDs Continue supportive mgmt Decrease IVF 75ml/h Continue Cefepime/Vancomycin Await final blood/Ucx results PT evaluation for functional assessment Consult Nephrology in am AM lab: BMP, CBC
[2019-05-09] MEDS: Famotidine/PF 20 mg/2ml Vial SLOW IVP SCH (19:25)
[2019-05-09 22:33] LABS: Vancomycin, Random 16.4 ug/mL (See Comment)
[2019-05-10] MEDS: Vancomycin HCl 500 MG in Sodium Chloride 0.9% 100 ML IVPB SCH (00:57)
[2019-05-10 04:14] LABS: Reticulocyte Count 1.6 % (0.5-1.5)
[2019-05-10 04:20] LABS: Band 1 % (5-11); Eosinophils 1 % (0-10); Hemoglobin 9.1 g/dL (14.0-18.0); Lymphocytes 12 % (21-51); MDiff Complete? YES; Mean Corpuscular HGB CONC 31.7 g/dL (32.0-36.0); Mean Corpuscular Hemoglobin 27.7 pg (27.0-31.0); Mean Corpuscular Volume 87.3 fL (78.0-98.0); Mean Platelet Volume 9.8 fL (7.4-10.4); Neutrophil 86 % (42-75); Platelet Count 133 thou/uL (130-400); Platelet Morphology Comment Appears Adequate; RBC Morphology Normal; White Blood Cell (WBC) Count 9.2 thou/uL (4.8-10.8)
[2019-05-10 04:33] LABS: Anion Gap 15 mmol/L (10-20); BUN (Urea Nitrogen) 37 mg/dL (8.4-25.7); Calc. Creatinine Clearance 17 mL/min (70-130); Calcium 8.7 mg/dL (7.8-10.44); Carbon Dioxide 21 mmol/L (23-31); Chloride 122 mmol/L (98-107); Estimated GFR-MDRD 18; Glucose 62 mg/dL (83-110); Iron 40 ug/dL (65-175); Iron Binding Capacity, Total 200 mcg/dL (261-462); Potassium 4.5 mmol/L (3.5-5.1); Sodium 153 mmol/L (136-145)
[2019-05-10] MEDS: Sodium Chloride 0.9% 1,000 ML IV SCH (07:46)
[2019-05-10] MEDS ORDERED: Sodium Chloride 0.45% 1,000 ML IV SCH ×2 (08:30→08:33)
[2019-05-10] MEDS: Folic Acid 1 MG TAB PO SCH (09:17)
[2019-05-10] MEDS: Cefepime 1 GM in Sodium Chloride 0.9% 100 ML IVPB SCH (09:20)
--- NOTE | 2019-05-10 09:51 | CON ---
DATE OF CONSULTATION: HISTORY OF PRESENT ILLNESS: Mr. Mercado is a 73-year-old black male, who was admitted for mental status change/unresponsiveness. He was also noted to be having an acute kidney injury on top of his chronic renal failure. He has had a history of decreased p.o. intake. Please note, the patient has history of schizophrenia and sometimes noted to be catatonic. This morning, he is noted to be more awake and answering to my verbal questioning. We are now consulted for further management of the patient's acute kidney injury. REVIEW OF SYSTEMS: No chest pain. No shortness of breath. No nausea. No vomiting. No diarrhea. Denies any fever or chills. No headache. No diplopia. Occasionally confused. MEDICATIONS: He is currently on; 1. Amlodipine 5 mg daily. 2. Zoloft 50 mg daily. 3. Risperdal 50 mg IM twice a month. 4. Famotidine 20 mg tablet once a day. PAST MEDICAL HISTORY: 1. Chronic renal failure. 2. Paranoid schizophrenia. 3. Hypertension. 4. GERD. 5. Osteoporosis. 6. Dementia. 7. History of bipolar disorder. 8. Anxiety. 9. Osteoporosis. PAST SURGICAL HISTORY: 1. Status post cystoscopy. 2. Status post ureteral right stent placement. 3. Status post retrograde pyelography. 4. Status post bladder biopsy. 5. Status post I and D of gluteal abscess. SOCIAL HISTORY: The patient is currently in a [place] [facility]. Currently, no smoking. No alcohol intake. No IV drug use. Sedentary lifestyle. ALLERGIES: HALDOL, NOVOCAIN, AND PROCAINE. TRAUMA: None. IMMUNIZATION: Up-to-date. HOSPITALIZATIONS: Please see past medical history. FAMILY HISTORY: Unknown. PHYSICAL EXAMINATION: VITAL SIGNS: Blood pressure 156/89, heart rate 89, respiratory rate 17, temperature 97.4, pulse ox 96% on room air. GENERAL: The patient is awake, dysarthric. He can follow simple commands and answer my questions. SKIN: Decreased turgor. HEENT: Slightly pale conjunctivae. Anicteric sclerae. No neck mass. No carotid bruits. No JVD. CHEST: No deformities. LUNGS: Clear breath sounds. No wheezing. No crackles. HEART: Normal sinus rhythm. No murmur. No gallops. No rubs. ABDOMEN: Globular, soft, nontender. No masses. EXTREMITIES: No edema. No deformities. LABORATORY AND DIAGNOSTIC DATA: Laboratories on May 10, 2019; white count 9.2, hemoglobin 9.1, hematocrit 28.8. Sodium 153, potassium 4.5, chloride 122, carbon dioxide 21, BUN 37, creatinine 3.93, glucose 62, GFR 18 mL/minute, calcium 8.7, iron is 40, TIBC 200. Folate 1.6. White count 9.2, hemoglobin 9.1. Chest x-ray is clear. CT scan of the brain, no acute intracranial abnormality. ASSESSMENT AND PLAN: 1. Acute kidney injury on top of his chronic renal failure - due to the history of decreased p.o. intake, consider hemodynamically-mediated renal dysfunction - the patient may simply be dehydrated. We did review his urinalysis and specific gravity is quite concentrated at 1021. He does have a small amount of protein. In addition, he does have white cells on the urine. We will continue IV hydration. 2. Hypernatremia. We will change the patient's IV fluid to half-normal saline at 125 mL/hr. 3. Chronic renal failure, consider possible underlying hypertensive nephropathy. Due to the history of a previous ureteral stent placement, we need to rule out any acute obstruction with this patient. For that reason, we ordered a renal ultrasound. 4. Agree with current management. 5. ? of urosepsis, on IV antibiotics. 6. Recheck basic metabolic panel and CBC in a.m. 7. Chronic anemia, on iron supplementation as well as folate tablets. Job ID: [id number]
--- NOTE | 2019-05-10 11:12 | ULT ---
RENAL ULTRASOUND: HISTORY: Chronic renal failure. FINDINGS: Real-time imaging of the right kidney show a very difficult to visualize kidney. The cortex appears echogenic estimated to measure 5.2 cm in length. The left kidney is never definitely identified. Th e bladder region shows a normal position to the bladder. IMPRESSION: Small echogenic right kidney. The left kidney is not definitely identified. It may be just obscured by bowel gas. POS: TPC
--- NOTE | 2019-05-10 16:27 | PDOC.HOSPP ---
- Subjective Encounter Date: 05/10/19 Encounter Time: 16:25 Subjective: f/u for severe dehydration, SAMMY and suspected sepsis due to LLL PNA tx with Cefepime/Vanc. Nursing reports pt refusing meds/po intake. Pt states he is " " and "doesn't have a heart or intestines." - Objective Vital Signs & Weight: Vital Signs (12 hours) Temp Pulse Pulse Pulse Resp BP BP 05/10/19 15:16 97.3 F L 77 16 05/10/19 11:32 97.4 F L 78 17 05/10/19 09:17 79 106 H 168/95 H 169/100 H 05/10/19 07:34 05/10/19 07:29 05/10/19 07:28 97.4 F L 89 17 BP Pulse Ox 05/10/19 15:16 165/92 H 96 05/10/19 11:32 164/98 H 97 05/10/19 09:17 05/10/19 07:34 96 05/10/19 07:29 92 L 05/10/19 07:28 156/89 H 96 Weight Admit Weight 153 lb Weight 153 lb I&O: 05/09/19 05/10/19 05/11/19 06:59 06:59 06:59 Intake Total 411 1574 Balance 411 1574 Result Diagrams: 05/10/19 03:49 05/10/19 03:49 Additional Labs: Laboratory Tests 05/08/19 05/08/19 05/08/19 15:16 15:16 23:29 Hgb 7.1 L 6.9 L Neutrophils % (Manual) 81 H Band Neuts % (Manual) 14 H Sodium 152 H Creatinine 3.70 H Ferritin Cortisol 05/09/19 05/09/19 05/09/19 04:12 04:12 13:08 Hgb 6.4 L Neutrophils % (Manual) 68 Band Neuts % (Manual) 17 H Sodium Creatinine Ferritin 95.90 Cortisol 9.10 Microbiology 05/08/19 18:35 Urine clean catch Urine Culture - Preliminary Radiology Reviewed by me: Yes (Bilat Renal sono - no acute process, limited eval of L kidney) EKG Reviewed by me: Yes (Tele - SR) Hospitalist ROS - Medication Medications: Active Medications Generic Name Dose Route Start Last Admin Trade Name Freq PRN Reason Stop Dose Admin Famotidine 20 mg 05/09/19 21:00 05/09/19 19:25 Pepcid SLOW IVP 20 mg QPM TAWNYA Administration Folic Acid 1 mg 05/10/19 09:00 05/10/19 09:17 Folvite PO 1 mg DAILY TAWNYA Administration Cefepime HCl 1 gm/ Sodium 100 mls @ 200 mls/hr 05/10/19 09:00 05/10/19 09:20 Chloride IVPB 100 mls 0900 TAWNYA Administration Vancomycin HCl 500 mg/ Sodium 100 mls @ 100 mls/hr 05/10/19 01:00 05/10/19 00 :57 Chloride IVPB 100 mls 0100 TAWNYA Administration Sodium Chloride 10 ml 05/09/19 09:00 05/10/19 09:20 Flush - Normal Saline IVF 10 ml Q12HR TAWNYA Administration - Exam General Appearance: NAD, awake alert Eye: PERRL, anicteric sclera ENT: normocephalic atraumatic, no oropharyngeal lesions Neck: supple, symmetric, no JVD, no thyromegaly Heart: RRR, no murmur, no gallops, no rubs, normal peripheral pulses Respiratory: CTAB, no wheezes, no rales, no ronchi Gastrointestinal: soft, non-tender, non-distended, normal bowel sounds Extremities: no cyanosis, no clubbing, no edema Skin: normal turgor, no lesions Neurological: cranial nerve grossly intact, no new deficit Musculoskeletal: normal tone, generalized weakness Psychiatric: oriented to person, flat affect Hosp A/P (1) Sepsis with encephalopathy and septic shock Code(s): A41.9 - SEPSIS, UNSPECIFIED ORGANISM; R65.21 - SEVERE SEPSIS WITH SEPTIC SHOCK; G93.40 - ENCEPHALOPATHY, UNSPECIFIED Status: Acute Plan: Suspected and resolving, continue Cefepime/Vanc another 24h then de-escalate coverage (2) Healthcare associated bacterial pneumonia Code(s): J15.9 - UNSPECIFIED BACTERIAL PNEUMONIA Status: Acute Plan: Continue Cefepime/Vanc another 24h (3) SAMMY (acute kidney injury) Code(s): N17.9 - ACUTE KIDNEY FAILURE, UNSPECIFIED Status: Acute Plan: Persistent, avoid nephrotoxic meds and limit contrast, serial monitoring (4) Hypernatremia Code(s): E87.0 - HYPEROSMOLALITY AND HYPERNATREMIA Status: Acute Plan: Worsening, change to D5W @ 100ml/h, serial Na+ monitoring (5) CKD (chronic kidney disease) stage 4, GFR 15-29 ml/min Code(s): N18.4 - CHRONIC KIDNEY DISEASE, STAGE 4 (SEVERE) Status: Chronic (6) Schizophrenia Code(s): F20.9 - SCHIZOPHRENIA, UNSPECIFIED Status: Chronic Plan: Advanced, supportive mgmt (7) Normocytic anemia Code(s): D64.9 - ANEMIA, UNSPECIFIED Status: Acute Plan: s/p 2u PRBC's, serial H/H, Folate/FeSO4 supplementation - Plan continue antibiotics, PT/OT, director of social media marketing, speech therapy, respiratory therapy, DVT proph w/SCDs Continue supportive mgmt D5W @ 100ml/h Continue Cefepime/Vancomycin another 24h then de-escalate Await final blood/Ucx results PT evaluation for functional assessment Appreciate Nephrology assistance AM lab: BMP, CBC
[2019-05-10] MEDS: Ferrous Sulfate 325 MG TAB PO SCH (16:46)
[2019-05-10] MEDS: Dextrose 5% in Water 1,000 ML IV SCH (16:46)
[2019-05-10] MEDS: Famotidine/PF 20 mg/2ml Vial SLOW IVP SCH (21:04)
[2019-05-10] MEDS ORDERED: Vancomycin HCl 500 MG in Sodium Chloride 0.9% 100 ML IVPB SCH (23:00)
[2019-05-11] MEDS: hydrALAZINE 20 MG/ML VIAL SLOW IVP PRN ×3 (00:56→23:41)
[2019-05-11] MEDS: Vancomycin HCl 500 MG in Sodium Chloride 0.9% 100 ML IVPB SCH (01:02)
[2019-05-11] MEDS: Dextrose 5% in Water 1,000 ML IV SCH ×3 (05:21→23:44)
[2019-05-11 06:24] LABS: Hemoglobin 9.9 g/dL (14.0-18.0); Mean Corpuscular HGB CONC 33.1 g/dL (32.0-36.0); Mean Corpuscular Hemoglobin 28.7 pg (27.0-31.0); Mean Corpuscular Volume 86.6 fL (78.0-98.0); Mean Platelet Volume 9.5 fL (7.4-10.4); Platelet Count 147 thou/uL (130-400); Red Blood Cell (RBC) Count 3.46 mill/uL (4.70-6.10); White Blood Cell (WBC) Count 10.4 thou/uL (4.8-10.8)
[2019-05-11 06:30] LABS: Band 2 % (5-11); Eosinophils 3 % (0-10); Lymphocytes 15 % (21-51); MDiff Complete? YES; Monocytes 3 % (0-10); Neutrophil 77 % (42-75); Platelet Morphology Comment Appears Adequate
[2019-05-11 06:33] LABS: Anion Gap 11 mmol/L (10-20); BUN (Urea Nitrogen) 35 mg/dL (8.4-25.7); Calc. Creatinine Clearance 21 mL/min (70-130); Calcium 8.7 mg/dL (7.8-10.44); Carbon Dioxide 21 mmol/L (23-31); Chloride 117 mmol/L (98-107); Estimated GFR-MDRD 21; Glucose 122 mg/dL (83-110); Potassium 3.8 mmol/L (3.5-5.1); Sodium 145 mmol/L (136-145); Vancomycin, Trough 16.1 ug/mL
--- NOTE | 2019-05-11 08:21 | PRG ---
DATE OF SERVICE: 05/11/2019 SUBJECTIVE: Mr. Mercado is a 73-year-old black male, who was seen for an acute kidney injury on top of his chronic renal failure. He was also being treated for pneumonia, currently on IV antibiotics. He was also noted to be hypernatremic and hypotonic solution has been given with improvement of his serum sodium. This morning, voices no new complaint. His mentation is about baseline. He does not follow commands, but answers intermittently and is somewhat confused. OBJECTIVE: VITAL SIGNS: Blood pressure 158/91, heart rate 97, respiratory rate 17, temperature 97.3, and pulse ox 92%. GENERAL: Noted to be awake, comfortable, responding to my verbal stimuli but not in distress. SKIN: Adequate turgor. HEENT: He has pinkish conjunctivae. Anicteric sclerae. No neck mass. No carotid bruits. No JVD. CHEST: No deformities. LUNGS: Clear breath sounds. No wheezing. No crackles. HEART: Normal sinus rhythm. No murmurs. No gallops. No rubs. ABDOMEN: Globular, soft, and nontender. No masses. EXTREMITIES: No edema. No deformities. MEDICATIONS: Medications of May 11, 2019, reviewed. LABORATORY DATA: Laboratories of May 11, 2019; sodium was noted at 145, potassium 3.8, chloride 117, carbon dioxide 21, BUN 35, creatinine 3.49, glucose 122, GFR 21 mL/minute, and calcium 8.7. Hemoglobin 9.9 and hematocrit 30. ASSESSMENT AND PLAN: 1. Chronic anemia, iron and folic acid tablet started. May be a candidate for Epogen due to his chronic renal failure. We will give him 7500 units subcu of Epogen q.week. 2. Acute kidney injury on top of his chronic renal failure, superimposed prerenal azotemia. Continue current management. Continue to hold off any diuretics. Continue IV hydration. 3. Hypernatremia, slowly improving with hypotonic solution. Continue current management. 4. Pneumonia, currently on IV antibiotics. 5. Recheck basic metabolic panel and CBC in a.m. Job ID: [id number]
[2019-05-11] MEDS: Cefepime 1 GM in Sodium Chloride 0.9% 100 ML IVPB SCH (09:05)
[2019-05-11] MEDS: Ferrous Sulfate 325 MG TAB PO SCH ×2 (09:05→16:11)
[2019-05-11] MEDS: Folic Acid 1 MG TAB PO SCH (09:05)
--- NOTE | 2019-05-11 14:55 | PDOC.HOSPP ---
- Subjective Encounter Date: 05/11/19 Encounter Time: 14:25 Subjective: f/u for SAMMY and dehydration receiving IVF's. Decreased po intake as pt refuses to take meds and food. No other issues reported. - Objective Vital Signs & Weight: Vital Signs (12 hours) Temp Pulse Resp BP BP Pulse Ox 05/11/19 11:26 97.5 F L 86 18 166/99 H 95 05/11/19 07:21 92 L 05/11/19 07:19 97.3 F L 97 17 158/91 H 92 L 05/11/19 04:44 96.3 F L 92 18 170/89 H 88 L Weight Admit Weight 153 lb Weight 165 lb 8 oz I&O: 05/10/19 05/11/19 05/12/19 06:59 06:59 06:59 Intake Total 1574 2750 Balance 1574 2750 Result Diagrams: 05/11/19 05:49 05/11/19 05:49 Additional Labs: Microbiology 05/08/19 18:35 Urine clean catch Urine Culture - Preliminary Laboratory Tests 05/08/19 05/08/19 05/08/19 15:16 15:16 23:29 Hgb 7.1 L 6.9 L Neutrophils % (Manual) 81 H Band Neuts % (Manual) 14 H Sodium 152 H Creatinine 3.70 H Ferritin Cortisol 05/09/19 05/09/19 05/09/19 04:12 04:12 13:08 Hgb 6.4 L Neutrophils % (Manual) 68 Band Neuts % (Manual) 17 H Sodium Creatinine Ferritin 95.90 Cortisol 9.10 EKG Reviewed by me: Yes (Tele - SR) Hospitalist ROS - Medication Medications: Active Medications Generic Name Dose Route Start Last Admin Trade Name Freq PRN Reason Stop Dose Admin Famotidine 20 mg 05/09/19 21:00 05/10/19 21:04 Pepcid SLOW IVP 20 mg QPM [facility] Administration Ferrous Sulfate 325 mg 05/10/19 17:00 05/11/19 09:05 Feosol PO Not Given BID-[facility] [place] Folic Acid 1 mg 05/10/19 09:00 05/11/19 09:05 Folvite PO Not Given DAILY [facility] Hydralazine HCl 10 mg 05/11/19 00:26 05/11/19 00:56 Apresoline SLOW IVP 10 mg Q4H PRN Administration SBP Greater Than 180 Cefepime HCl 1 gm/ Sodium 100 mls @ 200 mls/hr 05/10/19 09:00 05/11/19 09:05 Chloride IVPB 100 mls 0900 [facility]WNYA Administration Vancomycin HCl 500 mg/ Sodium 100 mls @ 100 mls/hr 05/10/19 01:00 05/11/19 01 :02 Chloride IVPB 100 mls 0100 TAWNYA Administration Dextrose/Water 1,000 mls @ 100 mls/hr 05/10/19 16:30 05/11/19 12:28 D5w IV 1,000 mls .Q10H TAWNYA Administration Sodium Chloride 10 ml 05/09/19 09:00 05/11/19 09:05 Flush - Normal Saline IVF 10 ml Q12HR TAWNYA Administration - Exam General Appearance: NAD, awake alert Eye: PERRL, anicteric sclera ENT: normocephalic atraumatic, no oropharyngeal lesions Neck: supple, symmetric, no JVD, no thyromegaly Heart: RRR, no murmur, no gallops, no rubs, normal peripheral pulses Respiratory: CTAB, no wheezes, no rales, no ronchi Gastrointestinal: soft, non-tender, non-distended, normal bowel sounds Extremities: no cyanosis, no clubbing, no edema Skin: normal turgor, no lesions Neurological: cranial nerve grossly intact, no new deficit Musculoskeletal: normal tone, generalized weakness Psychiatric: oriented to person, flat affect Hosp A/P (1) Sepsis with encephalopathy and septic shock Code(s): A41.9 - SEPSIS, UNSPECIFIED ORGANISM; R65.21 - SEVERE SEPSIS WITH SEPTIC SHOCK; G93.40 - ENCEPHALOPATHY, UNSPECIFIED Status: Acute Plan: Resolved, d/c Cefepime/Vancomycin, start Omnicef 300mg daily (2) Healthcare associated bacterial pneumonia Code(s): J15.9 - UNSPECIFIED BACTERIAL PNEUMONIA Status: Acute Plan: Suspected, de-escalate IV abx, start Omnicef 300mg daily (3) SAMMY (acute kidney injury) Code(s): N17.9 - ACUTE KIDNEY FAILURE, UNSPECIFIED Status: Acute Plan: Improved, continue volume replacement, avoid nephrotoxic meds (4) Hypernatremia Code(s): E87.0 - HYPEROSMOLALITY AND HYPERNATREMIA Status: Acute Plan: Resolving, continue IVF's (5) CKD (chronic kidney disease) stage 4, GFR 15-29 ml/min Code(s): N18.4 - CHRONIC KIDNEY DISEASE, STAGE 4 (SEVERE) Status: Chronic (6) Schizophrenia Code(s): F20.9 - SCHIZOPHRENIA, UNSPECIFIED Status: Chronic (7) Normocytic anemia Code(s): D64.9 - ANEMIA, UNSPECIFIED Status: Acute Plan: Epogen per Nephrology - Plan continue antibiotics, PT/OT, social work specialist, speech therapy, out of bed/ ambulate, DVT proph w/SCDs Continue supportive mgmt D5W @ 100ml/h D/C Cefepime/Vancomycin Start Omnicef 300mg daily PT evaluation for functional assessment Appreciate Nephrology assistance AM lab: BMP, CBC Likely back to SNF in 48h
[2019-05-11] MEDS: Famotidine/PF 20 mg/2ml Vial SLOW IVP SCH (19:44)
[2019-05-12 05:13] LABS: Anion Gap 10 mmol/L (10-20); BUN (Urea Nitrogen) 28 mg/dL (8.4-25.7); Calc. Creatinine Clearance 25 mL/min (70-130); Calcium 8.7 mg/dL (7.8-10.44); Carbon Dioxide 22 mmol/L (23-31); Chloride 112 mmol/L (98-107); Estimated GFR-MDRD 26; Glucose 113 mg/dL (83-110); Potassium 4.1 mmol/L (3.5-5.1); Sodium 140 mmol/L (136-145)
[2019-05-12 06:03] LABS: Band 9 % (5-11); Eosinophils 5 % (0-10); Hemoglobin 9.5 g/dL (14.0-18.0); Lymphocytes 8 % (21-51); MDiff Complete? YES; Mean Corpuscular HGB CONC 32.5 g/dL (32.0-36.0); Mean Corpuscular Hemoglobin 27.8 pg (27.0-31.0); Mean Corpuscular Volume 85.5 fL (78.0-98.0); Mean Platelet Volume 10.2 fL (7.4-10.4); Monocytes 3 % (0-10); Neutrophil 73 % (42-75); Platelet Count 137 thou/uL (130-400); RBC Distribution Width 15.8 % (11.5-14.5); Red Blood Cell (RBC) Count 3.42 mill/uL (4.70-6.10); White Blood Cell (WBC) Count 7.3 thou/uL (4.8-10.8)
--- NOTE | 2019-05-12 09:10 | PRG ---
DATE OF SERVICE: 05/12/2019 SUBJECTIVE: Mr. Mercado is a 73-year-old black male, who was seen by the Renal Service for his acute kidney injury. There was a superimposed hemodynamically-mediated renal dysfunction. This patient also has a diagnosis of pneumonia. He is currently on IV antibiotics. During this hospital course, he was noted to have become hypernatremic, he was given D5 water and this has improved his serum sodium. No acute events noted last night. OBJECTIVE: VITAL SIGNS: Blood pressure 160/94, heart rate 88, respiratory rate 16, temperature 97.9, pulse ox 97%. GENERAL: Awake, alert, lethargic, but not in distress. SKIN: Adequate turgor. HEENT: He has slightly pale conjunctivae. Anicteric sclerae. No neck mass. No carotid bruits. No JVD. CHEST: No deformities. LUNGS: Decreased breath sounds. HEART: Normal sinus rhythm. No murmurs, no gallops, no rubs. ABDOMEN: Globular, soft, nontender. No masses. EXTREMITIES: No edema. No deformities. MEDICATIONS: Of May 12, 2019, were reviewed. LABORATORIES: Of May 12, 2019: White count 7.2, hemoglobin 9.5. Sodium 140, potassium 4.1, chloride 112, carbon dioxide 22, BUN 28, creatinine 2.91, glucose 103, calcium 8.7. ASSESSMENT AND PLAN: 1. Acute kidney injury, superimposed hemodynamically-mediated renal dysfunction and has clinically much improved. Please note that the creatinine peaked at 3.98 and is currently now at 2.91. Continue gentle volume repletion. Hold off any diuretics. 2. Hypernatremia, much improved with free water p.o. intake and D5 water. For the moment, continue current management. 3. Pneumonia, currently on p.o. antibiotics. 4. Recheck basic metabolics and CBC in a.m. Job ID: [id number]
[2019-05-12] MEDS: Cefdinir 300 MG CAP PO SCH (09:18)
[2019-05-12] MEDS: Ferrous Sulfate 325 MG TAB PO SCH ×2 (09:18→17:08)
[2019-05-12] MEDS: Folic Acid 1 MG TAB PO SCH (09:18)
[2019-05-12] MEDS: Dextrose 5% in Water 1,000 ML IV SCH ×2 (09:19→17:08)
--- NOTE | 2019-05-12 13:52 | PRG ---
DATE OF SERVICE: 05/12/2019 SUBJECTIVE: The patient is seen examined at the bedside. There was no any unexpected events overnight. He does not complain about any pain, any shortness of breath, or chest pain. OBJECTIVE: VITAL SIGNS: Blood pressure is 137/82, pulse is 82, temperature is 94.8, respirations 17, O2 saturation is 97% on room air. HEENT: His head is atraumatic and normocephalic. Eyes, PERRLA. Sclerae are nonicteric. Oral mucosa is moist. NECK: Supple. LUNGS: Breath sounds diminished at both bases. HEART: S1, S2 normal. No S3. No S4. ABDOMEN: Soft, nontender, nondistended. EXTREMITIES: No clubbing, cyanosis or edema. NEUROLOGIC: He follows my commands. He moves his all 4 extremities. There is no any motor deficits. LABORATORY DATA: Labs showed white count of 7.3, hemoglobin 9.5, hematocrit 29.3, platelet count is 137. Sodium of 140, potassium 4.1, chloride 112, CO2 of 22, BUN 28, creatinine 2.91, glucose 113. Microbiology, no new findings. IMPRESSION: 1. Sepsis with encephalopathy and septic shock, resolved. 2. Healthcare associated bacterial pneumonia, resolved. The patient is switched to oral Omnicef. 3. Acute kidney injury, improving with IV hydration. 4. Hypernatremia, resolving with IV fluids. The patient is on continuous D5 water drip 100 mL/hour. 5. Schizophrenia. 6. Normocytic anemia. PLAN: We are going to continue his D5 water at 100 mL/hour. Continue Omnicef. Continue PT. Labs in the morning and we should be able to send him back to the residential most likely in the next 48 hours. Job ID: [id number]
[2019-05-12] MEDS: hydrALAZINE 20 MG/ML VIAL SLOW IVP PRN (17:07)
[2019-05-12] MEDS: Famotidine/PF 20 mg/2ml Vial SLOW IVP SCH (21:08)
[2019-05-13 05:09] LABS: Anion Gap 12 mmol/L (10-20); BUN (Urea Nitrogen) 21 mg/dL (8.4-25.7); Calc. Creatinine Clearance 26 mL/min (70-130); Calcium 8.7 mg/dL (7.8-10.44); Carbon Dioxide 20 mmol/L (23-31); Chloride 109 mmol/L (98-107); Estimated GFR-MDRD 28; Glucose 95 mg/dL (83-110); Sodium 137 mmol/L (136-145)
[2019-05-13] MEDS: Dextrose 5% in Water 1,000 ML IV SCH ×2 (05:56→14:56)
[2019-05-13 06:21] LABS: Hemoglobin 9.9 g/dL (14.0-18.0); Mean Corpuscular Hemoglobin 27.3 pg (27.0-31.0); Mean Corpuscular Volume 85.1 fL (78.0-98.0); Mean Platelet Volume 10.1 fL (7.4-10.4); Platelet Count 150 thou/uL (130-400); RBC Distribution Width 15.8 % (11.5-14.5); Red Blood Cell (RBC) Count 3.61 mill/uL (4.70-6.10); White Blood Cell (WBC) Count 7.1 thou/uL (4.8-10.8)
[2019-05-13 06:42] LABS: Band 6 % (5-11); Eosinophils 2 % (0-10); Lymphocytes 6 % (21-51); MDiff Complete? YES; Monocytes 3 % (0-10); Myelocyte 3 % (0-0); Neutrophil 80 % (42-75)
[2019-05-13] MEDS: Ferrous Sulfate 325 MG TAB PO SCH ×2 (08:52→17:10)
[2019-05-13] MEDS: Folic Acid 1 MG TAB PO SCH (08:53)
[2019-05-13] MEDS: Cefdinir 300 MG CAP PO SCH (08:53)
--- NOTE | 2019-05-13 12:09 | PRG ---
DATE OF SERVICE: 05/13/2019 SUBJECTIVE: The patient is seen and examined at bedside. He got quite agitated this morning. He refused to take any pills and he does not want to eat much. OBJECTIVE: VITAL SIGNS: Blood pressure is 140/85, pulse is 89, temperature 97.5, maximal temperature is 97.5, respirations 18, O2 saturation is 97% on room air. GENERAL: He does not want to communicate with me and he is not too happy when I try to examine him. LUNGS: Clear. HEART: S1 and S2 normal. No S3. No S4. ABDOMEN: Soft, nondistended. EXTREMITIES: No clubbing, cyanosis, or edema. LABORATORY DATA: Labs showed white count of 7.1, hemoglobin 9.9, hematocrit 30.7, platelet count 150,000. Sodium of 137, potassium 4.0, chloride 109, CO2 of 20, BUN 21, creatinine 2.75, glucose 95, and calcium 8.7. IMPRESSION: 1. Sepsis with encephalopathy and septic shock, resolved. 2. Healthcare-associated bacterial pneumonia, resolved. 3. Acute kidney injury, improving with IV hydration. 4. Hypernatremia, resolved with IV fluids. 5. Schizophrenia. 6. Normocytic anemia. PLAN: Plan is to continue his D5 water at 100 mL/hour. Tig Welder will make decision about discontinuation of the treatment. Also, we will continue his Omnicef if he is willing to take pills today. He has a history of schizophrenia and his current behavior could be related directly to his psych diagnosis. We will continue his Risperdal injections every two weeks and he should be able to go back to his place soon. Job ID: [id number]
--- NOTE | 2019-05-13 20:14 | PRG ---
DATE OF SERVICE: 05/13/2019 SERVICE: Renal Medicine. SUBJECTIVE: Mr. Mercado is a 73-year-old black male, seen by the Renal Service for hypernatremia as well as acute kidney injury. He was noted to be volume depleted. He received a hypotonic solution initially - half-normal saline with improvement of the renal function. He voices no new complaints today. The patient denies any chest pain or shortness of breath. Due to his underlying bipolar disorder, he is nonverbal at the present time. OBJECTIVE: VITAL SIGNS: Blood pressure is noted at 167/86, heart rate 81, respiratory rate 18, temperature 98.5, and pulse ox 97%. GENERAL: Noted to be awake but quiescent and not in overt distress. SKIN: Adequate turgor. HEENT: He has pinkish conjunctivae. Anicteric sclerae. NECK: No neck mass. No carotid bruits. No JVD. CHEST: No deformities. LUNGS: Clear breath sounds. HEART: Normal sinus rhythm. No murmurs, gallops, or rubs. ABDOMEN: Globular, soft, nontender. No masses. EXTREMITIES: No edema. No deformities. MEDICATIONS: Of May 13, 2019, were reviewed. LABORATORY DATA: Laboratories of May 13, 2019; white count 7.1, hemoglobin 9.9. Sodium 137, potassium 4, chloride 109, carbon dioxide 20, BUN 21, creatinine 2.75, glucose 95, and calcium 8.7. ASSESSMENT AND PLAN: 1. Acute kidney injury - this is secondary to hemodynamically-mediated renal dysfunction from his decreased p.o. intake. Currently, renal function was much improved. Continue IV hydration. 2. Hypernatremia, much improved with D5 water. Continue current IV fluids. Encourage the patient to increase his p.o. intake. 3. Bipolar disorder/schizophrenia. Continue current supportive management. The patient is currently on Risperdal 50 mg IM every 2 weeks. 4. Hypertension. Fair control. Continuing current BP medications as needed. Job ID: [id number] [facility]
[2019-05-13] MEDS: Famotidine/PF 20 mg/2ml Vial SLOW IVP SCH (20:31)
[2019-05-13] MEDS: hydrALAZINE 20 MG/ML VIAL SLOW IVP PRN (20:32)
[2019-05-14] MEDS: Dextrose 5% in Water 1,000 ML IV SCH ×4 (01:05→20:55)
[2019-05-14] MEDS: hydrALAZINE 20 MG/ML VIAL SLOW IVP PRN (02:59)
[2019-05-14 05:16] LABS: Anion Gap 14 mmol/L (10-20); BUN (Urea Nitrogen) 16 mg/dL (8.4-25.7); Calc. Creatinine Clearance 30 mL/min (70-130); Calcium 8.8 mg/dL (7.8-10.44); Carbon Dioxide 18 mmol/L (23-31); Chloride 111 mmol/L (98-107); Estimated GFR-MDRD 32; Glucose 108 mg/dL (83-110); Sodium 139 mmol/L (136-145)
[2019-05-14] MEDS: Ferrous Sulfate 325 MG TAB PO SCH ×2 (08:54→17:08)
[2019-05-14] MEDS: Cefdinir 300 MG CAP PO SCH (08:54)
[2019-05-14] MEDS: Folic Acid 1 MG TAB PO SCH (08:54)
--- NOTE | 2019-05-14 10:50 | PRG ---
DATE OF SERVICE: 05/14/2019 SERVICE: Renal Medicine. SUBJECTIVE: Mr. Mercado is a 73-year-old black male with known history of bipolar disorder/acute schizophrenia and was seen by the Renal Service for an acute kidney injury that was hemodynamically mediated. He was noted also to be hypernatremic. He was given initially half-normal saline, currently on D5 water. The serum sodium is much improved as well as the kidney function is also improving. No other complaints today. OBJECTIVE: VITAL SIGNS: Blood pressure is 144/72 with a heart rate of 77, respiratory rate 18, temperature 92.1, and pulse ox 100% on room air. GENERAL: Noted to be awake, but quiescent, not in distress - nonverbal. SKIN: Adequate turgor. HEENT: Pinkish conjunctivae. Anicteric sclerae. NECK: No neck mass. No carotid bruits. No JVD. CHEST: No deformities. LUNGS: Clear breath sounds. HEART: Normal sinus rhythm. No murmurs. No gallops. No rubs. ABDOMEN: Globular, soft, and nontender. No masses. EXTREMITIES: No edema. No deformities. MEDICATIONS: Medication of May 14, 2019, was reviewed. LABORATORY DATA: Laboratories of May 14, 2019; sodium 139, potassium 4, chloride 111, carbon dioxide 18, BUN 16, creatinine 2.42, GFR 32 mL/minute, and calcium 8.8. Hemoglobin 9.9. ASSESSMENT AND PLAN: 1. Acute kidney injury - superimposed hemodynamically-mediated renal dysfunction. Slowly improving. No indication for any dialytic intervention. 2. Hypernatremia, resolved. 3. Pneumonia, currently on p.o. antibiotics. Agree with current management. We will be rechecking another basic metabolic panel and CBC with this patient in a.m. Job ID: [id number]
--- NOTE | 2019-05-14 15:59 | PDOC.HOSPP ---
- Subjective Encounter Date: 05/14/19 Encounter Time: 15:45 Subjective: f/u for SAMMY/CKD, hypernatremia slowly improving with IVF's. Nursing reports pt refusing meds/food/H2O. - Objective Vital Signs & Weight: Vital Signs (12 hours) Temp Pulse Resp BP BP Pulse Ox 05/14/19 15:05 98.8 F 99 16 133/84 97 05/14/19 14:23 99.2 F 05/14/19 12:48 99.5 F 05/14/19 11:02 98.2 F 95 18 138/68 95 05/14/19 09:42 94.7 F L 05/14/19 08:44 93.8 F L 144/72 H 05/14/19 07:21 92.1 F L 77 18 179/83 H 94 L 05/14/19 05:34 97.1 F L 66 14 138/67 94 L Weight Admit Weight 153 lb Weight 169 lb 4.8 oz I&O: 05/13/19 05/14/19 05/15/19 06:59 06:59 06:59 Intake Total 1100 1200 Balance 1100 1200 Result Diagrams: 05/13/19 04:31 05/14/19 04:20 Additional Labs: Microbiology 05/08/19 18:35 Urine clean catch Urine Culture - Preliminary Laboratory Tests 05/08/19 05/08/19 05/08/19 15:16 15:16 23:29 Hgb 7.1 L 6.9 L Neutrophils % (Manual) 81 H Band Neuts % (Manual) 14 H Sodium 152 H Creatinine 3.70 H Ferritin Cortisol 05/09/19 05/09/19 05/09/19 04:12 04:12 13:08 Hgb 6.4 L Neutrophils % (Manual) 68 Band Neuts % (Manual) 17 H Sodium Creatinine Ferritin 95.90 Cortisol 9.10 EKG Reviewed by me: Yes (Tele - SR) Hospitalist ROS - Medication Medications: Active Medications Generic Name Dose Route Start Last Admin Trade Name Freq PRN Reason Stop Dose Admin Cefdinir 300 mg 05/12/19 09:00 05/14/19 08:54 Omnicef PO Not Given DAILY TAWNYA Famotidine 20 mg 05/09/19 21:00 05/13/19 20:31 Pepcid SLOW IVP 20 mg QPM [facility] Administration Ferrous Sulfate 325 mg 05/10/19 17:00 05/14/19 08:54 Feosol PO Not Given BID-WM [facility] Folic Acid 1 mg 05/10/19 09:00 05/14/19 08:54 Folvite PO Not Given DAILY [facility] Hydralazine HCl 10 mg 05/11/19 00:26 05/14/19 02:59 Apresoline SLOW IVP 10 mg Q4H PRN Administration SBP Greater Than 180 Sodium Chloride 10 ml 05/09/19 09:00 05/14/19 08:54 Flush - Normal Saline IVF Not Given Q12HR TAWNYA - Exam General Appearance: NAD Eye: PERRL, anicteric sclera ENT: normocephalic atraumatic, no oropharyngeal lesions Neck: supple, symmetric, no JVD, no thyromegaly Heart: RRR, no gallops, no rubs, normal peripheral pulses Respiratory - other findings: coarse sounds bilat, diminished in bases Gastrointestinal: soft, non-tender, non-distended, normal bowel sounds Extremities: no cyanosis, no clubbing Skin: normal turgor, no lesions Neurological: cranial nerve grossly intact, no new deficit Musculoskeletal: normal tone, generalized weakness Psychiatric: oriented to person, flat affect Hosp A/P (1) Healthcare associated bacterial pneumonia Code(s): J15.9 - UNSPECIFIED BACTERIAL PNEUMONIA Status: Acute Plan: Continue Omnicef, check PCXR (2) SAMMY (acute kidney injury) Code(s): N17.9 - ACUTE KIDNEY FAILURE, UNSPECIFIED Status: Acute Plan: Slow improvement with IVF's, continue to avoid nephrotoxic meds and limit contrast exposure (3) Hypernatremia Code(s): E87.0 - HYPEROSMOLALITY AND HYPERNATREMIA Status: Acute Plan: Resolved, decrease IVF's 75ml/h (4) CKD (chronic kidney disease) stage 4, GFR 15-29 ml/min Code(s): N18.4 - CHRONIC KIDNEY DISEASE, STAGE 4 (SEVERE) Status: Chronic (5) Schizophrenia Code(s): F20.9 - SCHIZOPHRENIA, UNSPECIFIED Status: Chronic (6) Sepsis with encephalopathy and septic shock Code(s): A41.9 - SEPSIS, UNSPECIFIED ORGANISM; R65.21 - SEVERE SEPSIS WITH SEPTIC SHOCK; G93.40 - ENCEPHALOPATHY, UNSPECIFIED Status: Acute Plan: Resolved (7) Normocytic anemia Code(s): D64.9 - ANEMIA, UNSPECIFIED Status: Chronic Plan: Serial H/H monitoring - Plan continue antibiotics, PT/OT, dialysis social worker, DVT proph w/SCDs Continue supportive mgmt D5W @ 75ml/h Start Omnicef 300mg daily PT evaluation for functional assessment Appreciate Nephrology assistance AM lab: BMP, CBC Palliative care consult in am due to refusal to eat/take meds, consider hospice PCXR today Likely back to SNF in 48h
--- NOTE | 2019-05-14 18:58 | RAD ---
PORTABLE CHEST: Comparison: 05-08-19 History: Pneumonia. FINDINGS: Heart size is enlarged. Increased parenchymal lung changes in the left lower lobe are probably simila r. This area is obscured by the heart. There is elevation of the right hemidiaphragm which was presen t on the prior exam. There is suggestion of maybe some development of some blunting to the right cost ophrenic angle but I think this largely positional. There is minimal parenchymal change in the right midlung field, slightly more prominent than on the prior study. IMPRESSION: 1. Cardiomegaly. 2. Increased density in the retrocardiac region is difficult to assess on the portable chest film. It appears stable. A PA and lateral chest film would be helpful in assessing this. 3. Slightly increased parenchymal changes within the right midlung field. This appears to be related to some changes in the right upper lobe. POS: DEN
[2019-05-14] MEDS: Famotidine/PF 20 mg/2ml Vial SLOW IVP SCH (20:53)
[2019-05-15] MEDS: Folic Acid 1 MG TAB PO SCH ×2 (08:45→10:43)
[2019-05-15] MEDS: Cefdinir 300 MG CAP PO SCH ×2 (08:45→10:49)
[2019-05-15] MEDS: Ferrous Sulfate 325 MG TAB PO SCH ×3 (08:45→17:44)
--- NOTE | 2019-05-15 09:19 | PRG ---
DATE OF SERVICE: 05/15/2019 SERVICE: Renal Medicine. SUBJECTIVE: Mr. Mercado is a 73-year-old black male, admitted for pneumonia and seen by the Renal Service for his acute kidney injury. He also had hypernatremia. Renal function is stabilizing and the hypernatremia is resolved. No new complaints today. He is still quiescent. A chest x-ray was done on May 14, 2019, and it showed increased density in the retrocardiac region. There is also slightly increased parenchymal changes within the right mid lung field. No complaints of chest pain or shortness of breath. OBJECTIVE: VITAL SIGNS: Blood pressure 150/83, heart rate 89, respiratory rate 16, temperature 98.3, and pulse ox 95%. GENERAL: The patient is awake, supine, comfortable, quiescent, nonverbal. HEENT: Pinkish conjunctivae. Anicteric sclerae. NECK: No neck mass. No carotid bruits. No JVD. CHEST: No deformities. LUNGS: Decreased breath sounds. HEART: Normal sinus rhythm. No murmur. No gallops. No rubs. ABDOMEN: Globular, soft, and nontender. No masses. EXTREMITIES: No edema. No deformities. MEDICATIONS: Medication of May 15, 2019, was reviewed. LABORATORY DATA: Laboratories of May 13, 2019; white count 7.1, hemoglobin 9.9. On May 14, 2019; sodium 139, potassium 4, chloride 111, carbon dioxide 18, BUN 16, creatinine 2.42, glucose 32, and calcium 8.8. ASSESSMENT AND PLAN: 1. Acute kidney injury - hemodynamically-mediated renal dysfunction. Awaiting repeat basement. We will recheck basic metabolic panel again tomorrow. Continue current management. No indication for any dialytic intervention. 2. Borderline anemia. Continue to observe. 3. Hypernatremia, resolved with hypotonic solution. 4. Pneumonia on p.o. antibiotics. Recheck basic metabolic panel and CBC. Agree with current management. Job ID: [id number]
[2019-05-15] MEDS: Dextrose 5% in Water 1,000 ML IV SCH (10:41)
[2019-05-15 10:45] LABS: #Eosinphils 0.2 thou/uL (0.0-0.7); #Lymphocytes 1.2 thou/uL (1.20-3.40); #Monocytes 0.6 thou/uL (0.11-0.59); #Neutrophils 4.3 thou/uL (1.40-6.50); %Basophils 0.3 % (0.0-1.0); %Lymphocytes 18.5 % (21.0-51.0); %Monocytes 9.7 % (0.0-10.0); %Neutrophils 68.3 % (42.0-75.0); Hemoglobin 9.3 g/dL (14.0-18.0); Mean Corpuscular HGB CONC 32.3 g/dL (32.0-36.0); Mean Corpuscular Volume 86.7 fL (78.0-98.0); Mean Platelet Volume 9.5 fL (7.4-10.4); Platelet Count 173 thou/uL (130-400); RBC Distribution Width 16.2 % (11.5-14.5); Red Blood Cell (RBC) Count 3.31 mill/uL (4.70-6.10); White Blood Cell (WBC) Count 6.3 thou/uL (4.8-10.8)
[2019-05-15 10:56] LABS: Anion Gap 9 mmol/L (10-20); BUN (Urea Nitrogen) 14 mg/dL (8.4-25.7); Calc. Creatinine Clearance 28 mL/min (70-130); Calcium 8.5 mg/dL (7.8-10.44); Carbon Dioxide 26 mmol/L (23-31); Chloride 109 mmol/L (98-107); Estimated GFR-MDRD 29; Glucose 88 mg/dL (83-110); Potassium 3.5 mmol/L (3.5-5.1); Sodium 140 mmol/L (136-145)
--- NOTE | 2019-05-15 13:57 | PDOC.HOSPP ---
- Subjective Encounter Date: 05/15/19 Encounter Time: 13:50 Subjective: f/u for AMS, SAMMY and hypernatremia. Nursing reports pt eating and drinking some today after came for visit. Family wishing to pursue hospice care. - Objective Vital Signs & Weight: Vital Signs (12 hours) Temp Pulse Resp BP Pulse Ox 05/15/19 11:31 98.0 F 96 16 99/56 L 95 05/15/19 07:56 98.3 F 89 16 150/83 H 95 05/15/19 03:43 97.4 F L 98 22 H 154/90 H 96 Weight Admit Weight 153 lb Weight 168 lb 6.4 oz I&O: 05/14/19 05/15/19 05/16/19 06:59 06:59 06:59 Intake Total 1200 900 Balance 1200 900 Result Diagrams: 05/15/19 10:19 05/15/19 10:19 Additional Labs: Microbiology 05/08/19 18:35 Urine clean catch Urine Culture - Preliminary Laboratory Tests 05/08/19 05/08/19 05/08/19 15:16 15:16 23:29 Hgb 7.1 L 6.9 L Neutrophils % (Manual) 81 H Band Neuts % (Manual) 14 H Sodium 152 H Creatinine 3.70 H Ferritin Cortisol 05/09/19 05/09/19 05/09/19 04:12 04:12 13:08 Hgb 6.4 L Neutrophils % (Manual) 68 Band Neuts % (Manual) 17 H Sodium Creatinine Ferritin 95.90 Cortisol 9.10 Radiology Reviewed by me: Yes (PCXR - technically limited exam, no new infiltrates) EKG Reviewed by me: Yes (Tele - SR) Hospitalist ROS - Medication Medications: Active Medications Generic Name Dose Route Start Last Admin Trade Name Freq PRN Reason Stop Dose Admin Cefdinir 300 mg 05/12/19 09:00 05/15/19 10:49 Omnicef PO 300 mg DAILY TAWNYA Administration Famotidine 20 mg 05/09/19 21:00 05/14/19 20:53 Pepcid SLOW IVP 20 mg QPM TAW[facility] Administration Ferrous Sulfate 325 mg 05/10/19 17:00 05/15/19 10:42 Feosol PO 325 mg BID-WM TAWNYA Administration Folic Acid 1 mg 05/10/19 09:00 05/15/19 10:43 Folvite PO 1 mg DAILY TAW[facility]A Administration Hydralazine HCl 10 mg 05/11/19 00:26 05/14/19 02:59 Apresoline SLOW IVP 10 mg Q4H PRN Administration SBP Greater Than 180 Dextrose/Water 1,000 mls @ 75 mls/hr 05/14/19 15:47 05/15/19 10:41 D5w IV 1,000 mls .[id number] TAWNYA Administration Sodium Chloride 10 ml 05/09/19 09:00 05/15/19 08:46 Flush - Normal Saline IVF Not Given Q12HR TAWNYA - Exam General Appearance: NAD Eye: PERRL, anicteric sclera ENT: normocephalic atraumatic, no oropharyngeal lesions Neck: supple, symmetric, no JVD, no thyromegaly Heart: RRR, no gallops, no rubs, normal peripheral pulses Respiratory - other findings: diminished bilat, few coarse sounds Gastrointestinal: soft, non-tender, non-distended, normal bowel sounds Extremities: no cyanosis, no clubbing Skin: normal turgor, no lesions Neurological: cranial nerve grossly intact, no new deficit Musculoskeletal: normal tone, generalized weakness Psychiatric: oriented to person Hosp A/P (1) Healthcare associated bacterial pneumonia Code(s): J15.9 - UNSPECIFIED BACTERIAL PNEUMONIA Status: Acute Plan: Continue Omnicef 300mg daily, general pulmonary support (2) SAMMY (acute kidney injury) Code(s): N17.9 - ACUTE KIDNEY FAILURE, UNSPECIFIED Status: Acute Plan: Mild improvement, continue IVF's, avoid nephrotoxic meds and limit contrast (3) Hypernatremia Code(s): E87.0 - HYPEROSMOLALITY AND HYPERNATREMIA Status: Acute Plan: Resolved (4) CKD (chronic kidney disease) stage 4, GFR 15-29 ml/min Code(s): N18.4 - CHRONIC KIDNEY DISEASE, STAGE 4 (SEVERE) Status: Chronic (5) Schizophrenia Code(s): F20.9 - SCHIZOPHRENIA, UNSPECIFIED Status: Chronic (6) Sepsis with encephalopathy and septic shock Code(s): A41.9 - SEPSIS, UNSPECIFIED ORGANISM; R65.21 - SEVERE SEPSIS WITH SEPTIC SHOCK; G93.40 - ENCEPHALOPATHY, UNSPECIFIED Status: Acute Plan: Resolved (7) Normocytic anemia Code(s): D64.9 - ANEMIA, UNSPECIFIED Status: Chronic Plan: Stable - Plan plan discussed w/ family, continue antibiotics, PT/OT, social services manager, DVT proph w/SCDs Continue supportive mgmt D5W @ 75ml/h Start Omnicef 300mg daily PT evaluation for functional assessment Appreciate Nephrology assistance Consult Hospice Likely back to SNF in 24h
[2019-05-15 14:14] VITALS: BMI 24.1
[2019-05-15] MEDS: Famotidine/PF 20 mg/2ml Vial SLOW IVP SCH (20:05)
[2019-05-16] MEDS: Dextrose 5% in Water 1,000 ML IV SCH (05:57)
[2019-05-16] MEDS: Ferrous Sulfate 325 MG TAB PO SCH (08:14)
[2019-05-16] MEDS: Folic Acid 1 MG TAB PO SCH (08:15)
[2019-05-16] MEDS: Cefdinir 300 MG CAP PO SCH (08:15)
--- NOTE | 2019-05-16 09:54 | PRG ---
DATE OF SERVICE: 05/16/2019 SUBJECTIVE: Mr. Mercado is a 73-year-old black male, who was seen by the Renal Service for his acute kidney injury on top of his chronic renal failure. He has superimposed prerenal azotemia. He has received IV hydration. Renal function is relatively stable except today the creatinine is slightly high at 2.63. Please note, this patient has still decreased p.o. intake and he is not eating. I did discuss the issue with the about a PEG tube, but it seems that they are veering towards hospice care. The patient is planned to be discharged today and hospice consult will be done. No other new complaints. OBJECTIVE: VITAL SIGNS: Blood pressure 145/79, heart rate 83, respiratory rate 16, temperature 98.1, pulse ox 94%. GENERAL: The patient is awake and converse from [id number], but essentially has a paucity of speech. He looks comfortable, not in distress. SKIN: Adequate turgor. HEENT: He has slightly pale conjunctivae. Anicteric sclerae. NECK: No neck mass. No carotid bruits. No JVD. CHEST: No deformities. LUNGS: Clear breath sounds. No wheezing. No crackles. HEART: Normal sinus rhythm. No murmur. No gallops. No rubs. ABDOMEN: Globular, soft, nontender. No masses. EXTREMITIES: No edema. No deformities. MEDICATIONS: Medications of May 16, 2019, was reviewed. LABORATORY DATA: Laboratories of May 15, 2019; hemoglobin 9.3. On May 15, 2019, BUN 14, creatinine 2.63, potassium 3.5. ASSESSMENT AND PLAN: Acute kidney injury/chronic renal failure-stable. The patient has received IV volume repletion. Still not eating. Ideally, he should get a PEG tube, but the family is veering towards hospice care. The plan is to discharge him today. We will be signing off. Please recall if needed. Job ID: [id number]
--- NOTE | 2019-05-16 14:15 | DIS ---
DATE OF ADMISSION: 05/08/2019 DATE OF DISCHARGE: 05/16/2019 DISCHARGE DIAGNOSES: 1. Healthcare-associated bacterial pneumonia, suspected gram-positive cocci, improved. 2. Acute kidney injury on chronic kidney disease, stage 4, improved. 3. Hypernatremia, resolved. 4. Dehydration, resolved. 5. Paranoid schizophrenia, severe. 6. Sepsis with encephalopathy and septic shock, resolved. 7. Normocytic anemia, chronic and stable. CONSULTATIONS: 1. Dr. Dolan with Nephrology Service. 2. [facility] H[facility] Services. PERTINENT LABORATORY AND X-RAY FINDINGS: Sodium ranged between 137 to 153. Creatinine ranged between 2.42 to 3.98. Estimated GFR ranged between 18 to 32. Lactic acid level 2.1. Magnesium level 2.6. Serum iron level 40, TIBC 200, and ferritin 95.9. Albumin 2.9. Vitamin B12 level 613. Folate 1.6. TSH 3.74. Serum cortisol level 9.10. CBC showed a white blood cell count ranging between 6.3 to 10.4, hemoglobin ranged between 6.4 to 9.9. Urine drug screen dated 05/08/2019, negative. Urine culture dated 05/08/2019, showed 50,000 to 75,000 colonies of mixed skin and enteric adelaida. CT of the brain without contrast dated 05/08/2019, showed no acute intracranial process. Portable chest x-ray dated 05/08/2019, showed left lower lobe infiltrate. Bilateral renal ultrasound dated 05/10/2019, showed small echogenic right kidney with non-identified left kidney due to bowel gas. Portable chest x-ray dated 05/14/2019, showed cardiomegaly. Increased density in the retrocardiac region difficult to assess on portable imaging. HOSPITAL COURSE: The patient was initially admitted after presenting with unresponsiveness and altered mental status. The patient was noted with severe dehydration and hypotension and treated for suspected septic shock. The patient was placed on IV Zosyn and vancomycin, transitioning to cefepime and vancomycin after concern for healthcare-associated pneumonia. The patient received aggressive IV fluid hydration and sepsis protocol treatment. The patient clinically stabilized, however, was noted with acute kidney injury at the time of admission. The patient's renal function continued to decline despite interventions with IV fluids and avoiding nephrotoxic agents. Consultation was obtained by the Nephrology Service, who recommended ongoing IV fluid administration and serial monitoring. The patient was also noted with hypernatremia in the context of severe dehydration resolving with D5 infusion intravenously. The patient refused multiple medication administrations as well as declining to take oral intake or work with Physical Therapy or nursing staff during the hospital course. The patient with long-standing and severe schizophrenia, likely contributing factor. Due to the patient's overall comorbid status and current living situation, discussions were had with the Palliative Care Service regarding goals of care and long-term management. The family decided to pursue hospice care at [facility] after discharge. I have examined the patient at the time of discharge with final disposition discussed. The patient agrees to discharge on 05/16/2019. DISCHARGE MEDICATIONS: 1. Risperdal 50 mg intramuscularly on the 1st and 15th of each month. 2. Omnicef 300 mg p.o. daily x7 days. 3. Ferrous sulfate 325 mg p.o. b.i.d. 4. Folic acid 1 mg p.o. daily. FOLLOWUP: The patient may follow up with his primary care provider, Dr. Lena Sheppard at [facility]. The patient will also follow up with the [facility] after returning to [facility]. CONDITION ON DISCHARGE: Guarded. ACTIVITY: Ad-amanda. DIET: Regular. CODE STATUS: Do not attempt resuscitation. DISPOSITION: Discharged to [facility] on 05/16/2019. TIME SPENT: Total time preparing and coordinating discharge, 33 minutes. Job ID: [id number]
[2019-05-16 15:44] VITALS: BP 145/78; TEMP 97.8
== END 2019-05-16 16:44 | disposition hospice, inpatient (51) | DRG 871 ==
LOC: ERS 15:14 → ERHOLD 17:57 → 2NO 23:11
PROVIDERS: ADMIT Family Medicine; ATTEND Family Medicine
PROC: 30233N1 Transfusion of Nonautologous Red Blood Cells into Peripheral Vein, Percutaneous Approach (ICD-10-PCS; principal; 2019-05-09)
DX: A41.9 Sepsis, unspecified organism (principal); J15.9 Unspecified bacterial pneumonia; R65.21 Severe sepsis with septic shock; G93.41 Metabolic encephalopathy; Z66 Do not resuscitate; Z51.5 Encounter for palliative care; N17.9 Acute kidney failure, unspecified; N18.4 Chronic kidney disease, stage 4 (severe); E87.0 Hyperosmolality and hypernatremia; F20.0 Paranoid schizophrenia; E86.0 Dehydration; D63.1 Anemia in chronic kidney disease; Y95 Nosocomial condition; K21.9 Gastro-esophageal reflux disease without esophagitis; F03.90 Unspecified dementia, unspecified severity, without behavioral disturbance, psychotic disturbance, mood disturbance, and anxiety; F31.9 Bipolar disorder, unspecified; F41.9 Anxiety disorder, unspecified; I12.9 Hypertensive chronic kidney disease with stage 1 through stage 4 chronic kidney disease, or unspecified chronic kidney disease; K58.9 Irritable bowel syndrome, unspecified; M81.0 Age-related osteoporosis without current pathological fracture; Z79.899 Other long term (current) drug therapy; Z88.8 Allergy status to other drugs, medicaments and biological substances
CPT/HCPCS: 36415; 36416; 36430; 51701; 70450; 71045; 76770; 80048; 80053; 80202; 80306; 80307; 81003; 81015; 82533; 82550; 82553; 82607; 82728; 82746; 83540; 83550; 83605; 83690; 83735; 84443; 84484; 85007; 85025; 85027; 85046; 86850; 86900; 86901; 87086; 93005; 96365; 96366; J0360; J0692; J2543; J3370; J3490; P9016; S0028